=== PATIENT | female | born 1955 | race Caucasian/White ===

== ENCOUNTER → 2018-11-11 | Day surgery (SDC) | payer BC ==
[2018-11-05 11:01] LABS: BASOPHILS % 0.7 % (0.0-1.0); EOSINOPHILS # (AUTO) 0.3 (0.0-0.4); EOSINOPHILS % 4.3 % (0.0-6.0); HEMATOCRIT 39.2 % (34.2-44.1); HEMOGLOBIN 12.8 g/dL (12.0-16.0); LYMPHOCYTES # (AUTO) 1.5 (1.0-3.2); LYMPHOCYTES % 26.5 % (18.0-39.1); MEAN CORPUSCULAR HEMOGLOBIN 28.8 pg (28-32); MEAN CORPUSCULAR HGB CONC 32.7 g/dL (31-35); MEAN CORPUSCULAR VOLUME 88.3 fL (81-99); MONOCYTES # (AUTO) 0.5 (0.2-0.8); NEUTROPHILS # (AUTO) 3.5 (2.1-6.9); NEUTROPHILS % 60.3 % (38.7-80.0); PLATELET COUNT 226 x10e3/uL (140-360); RED BLOOD COUNT 4.44 x10e6/uL (3.6-5.1)
[2018-11-05 11:16] LABS: ANION GAP 10.8 mmol/L (8-16); BLOOD UREA NITROGEN 13 mg/dL (7-26); BUN/CREATININE RATIO 18 (6-25); CALCIUM 9.4 mg/dL (8.4-10.2); CARBON DIOXIDE 27 mmol/L (22-29); CHLORIDE 103 mmol/L (98-107); CREATININE, SERUM 0.73 mg/dL (0.57-1.11); EST GLOMERULAR FILTRATION RATE > 60 ML/MIN (60-); GLUCOSE 93 mg/dL (74-118); POTASSIUM 3.8 mmol/L (3.5-5.1); SODIUM 137 mmol/L (136-145)
--- NOTE | 2018-11-05 11:22 | Diagnostic Imaging Report ---
Chest, 2 views, 11/05/2018. History: Preop, foot surgery. Comparison: None available. Findings: The cardiomediastinal silhouette and pulmonary vasculature are within normal limits. The lungs are clear without evidence of consolidation or pleural effusion. Mild degenerative changes are present within the thoracic spine. There are no acute osseous or soft tissue abnormalities. Impression: No acute cardiopulmonary abnormality. Signed by: Willie Canela on 11/05/2018 11:18 AM
[~2018-11-11] MED LIST: ASPIRIN81 MG PO; ATORVASTATIN CA20 MG PO; BUPIVACAINE HCL 0.5% INJ 30 ML VIAL INJ ONE; CALCIUM 500+D1 EACH PO; CEFAZOLIN SOD 1 GM/NS 50ML 100 ML IV ONE; DEXAMETHASONE SOD PHOS INJ 4 MG/ML VIAL ONE; ENTRESTO PO; HYDROMORPHONE 2MG/ML 2 MG/ML ML ONE; LASIX20 MG PO; LIDOCAINE HCL 2% LOCAL INJ 5 ML SDV VIAL INJ ONE; METOPROLOL SUCC50 MG PO; MONTELUKAST SOD10 MG PO; NEOSTIGMINE 1 MG/ML 10ML VIAL ONE; ONDANSETRON HCL INJ 2MG/ML 2ML 2 MG/ML VIAL ONE; PREVACID15 M1 PO; PROPOFOL IV EMULSION 10 MG/ML 20 ML VIAL ONE; SEVOFLURANE INHAL SOLN 250 ML PEN BTL ONE; VALACYCLOVIR500 MG PO
--- OUTSIDE RECORDS SUMMARY | 2018-11-11 05:37 | XMS REPORT | Clinical Summary ---
Author Author [facility] Organization [facility] Address Unknown Phone Unavailable Care Team Providers Care Certified Family Mediator Name Role Phone Sid Winchester MD PCP Allergies Comments Active Allergy Reactions Severity Noted Date Iodine Itching 05/29/2016 Levofloxacin Itching 05/29/2016 Medications End Date Status Medication Sig Dispensed Refills Start Date Active LANSOPRAZOLE (PREVACID Take by 0 ORAL) mouth. OTC med Active ERGOCALCIFEROL, VITAMIN Take 2 0 D2, (VITAMIN D2 ORAL) tablets by mouth daily. Active CALCIUM CARBONATE/VITAMIN Take by 0 D3 (CALCIUM 500 + D ORAL) mouth. Active furosemide (LASIX) 20 mg Take 20 mg by 0 tablet mouth daily. Active spironolactone Take 25 mg by 0 (ALDACTONE) 25 MG tablet mouth 2 (two) times a day. Active sacubitril-valsartan Take 1 tablet 0 (ENTRESTO) 24-26 mg by mouth 2 tablet per tablet (two) times a day. Active potassium chloride Take 10 mEq 0 (KLOR-CON) 10 MEQ CR by mouth 2 tablet (two) times a day. Take with food Active aspirin (ECOTRIN) 81 MG Take 81 mg by 0 enteric coated tablet mouth daily. Active atorvastatin (LIPITOR) 40 Take 80 mg by 0 MG tablet mouth daily. Active metoprolol tartrate Take 50 mg by 0 (LOPRESSOR) 50 mg tablet mouth. Active multivitamins & Take 15 mL by 0 minerals-ferrous mouth daily. gluconate 9 mg iron/15 mL liquid Active ticagrelor (BRILINTA) 90 Take 90 mg by 0 mg tablet mouth. Active montelukast (SINGULAIR) Take 10 mg by 0 10 mg tablet mouth nightly. 06/05/2018 Discontinued (Therapy completed) triamcinolone (KENALOG) 0 0.1 % cream 7 06/05/2018 Discontinued (Therapy completed) losartan-hydrochlorothiaz Take 1 tablet 0 david (HYZAAR) 50-12.5 mg by mouth 2 per tablet (two) times a day. 06/05/2018 Discontinued (Therapy completed) LORATADINE (CLARITIN Take by 0 ORAL) mouth. OTC MED 06/05/2018 Discontinued (Therapy completed) ferrous sulfate 325 (65 Take 325 mg 0 FE) MG tablet by mouth daily with breakfast. 06/05/2018 Discontinued (Therapy completed) pantoprazole (PROTONIX) Take 20 mg by 0 20 MG EC tablet mouth daily. 06/05/2018 Discontinued (Therapy completed) ranolazine (RANEXA) 500 Take 500 mg 0 MG 12 hr ER tablet by mouth every 12 (twelve) hours. Active Problems Problem Noted Date First myocardial infarction Cardiomyopathy Encounters Care Team Description Date Type Specialty Concepcion Wayne MA 06/23/2018 Telephone Obstetrics and Gynecology Nicolasa Estrada MD Well woman exam (Primary Dx); Cervical cancer screening; Breast cancer screening 06/05/2018 Office Visit Obstetrics and Gynecology after 11/10/2017 Social History Date Tobacco Use Types Packs/Day Years Used Quit: 05/28/1992 Former Smoker Smokeless Tobacco: Never Used Drinks/Week oz/Week Comments Alcohol Use No Sex Assigned at Date Recorded Not on file Industry Job Start Date Occupation Not on file Not on file Not on file Travel End Travel History Travel Start No recent travel history available. Last Filed Vital Signs Reading Time Taken Comments Vital Sign 109/72 06/05/2018 11:46 AM CDT Blood Pressure 76 06/05/2018 11:46 AM CDT Pulse - - Temperature - - Respiratory Rate - - Oxygen Saturation - - Inhaled Oxygen Concentration 88.5 kg (195 lb) 06/05/2018 11:46 AM CDT Weight 166.4 cm (5' 5.5") 06/05/2018 11:46 AM CDT Height 31.96 06/05/2018 11:46 AM CDT Body Mass Index Plan of Treatment Health Maintenance Due Date Last Done Comments CERVICAL CANCER SCREENING 1977 COLONOSCOPY SCREENING 2006 SHINGLES VACCINES (#1) 2006 BREAST CANCER SCREENING 06/15/2018 06/15/2016 INFLUENZA VACCINE 10/16/2018 Procedures Comments Procedure Name Priority Date/Time Associated Diagnosis HPV MRNA E6/E7 REFLEX Routine 06/05/2018 HPV 16, 18/45 (REFLEX) 12:09 PM CDT THINPREP TIS PAP Routine 06/05/2018 12:09 PM CDT after 11/10/2017 Results * HPV mRNA E6/E7 REFLEX HPV 16, 18/45 (06/05/2018 12:09 PM CDT) HPV mRNA e6/e7 Not Detected Not Detected [facility] Comment: [facility] This test was performed using ING II the APTIMA HPV Assay ([employer] This assay detects E6/E7 viral messenger RNA (mRNA) from 14 high-risk HPV types (16,18,31,33,35,39,45,51,52,56 ,58,59,66,68). The analytical performance characteristics of this assay have been determined by [employer]. The modifications have not been cleared or approved by the FDA. This assay has been validated pursuant to the CLIA regulations and is used for clinical purposes. Specimen Resulting Agency Comment Performing Organization Information: Site ID: [id number] Name: [facility] Address: [address] [place] [phone] Director: Dr. Wei Myles Performing Organization Address City/State/Zipcode Phone Number JUDY [id number] [place] [address] II * THINPREP TIS PAP (06/05/2018 12:09 PM CDT) Clinical None given [facility] information [facility] ING II Date of last NONE GIVEN [facility] menstrual [facility] period ING II Prev. pap: NONE GIVEN [facility] ING II Prev. bx: NONE GIVEN [facility] ING II Source None given [facility] II Statement of Comment: [facility] adequacy Satisfactory for evaluation. [facility] Endocervical/transformation ING II zone component present. Interpretation/ Comment: Negative for [facility] result: intraepithelial lesion or [facility] malignancy. ING II Comment Comment: [facility] This Pap test has been [facility] evaluated with computer ING II assisted technology. [employer] Comment: [facility] t JESSICA, CT(ASCP) [facility] CT screening location: [facility] ING II Jean Paul [address], [place] [address] Comment Comment: [facility] EXPLANATORY NOTE: [facility] The Pap is a screening test ING II for cervical cancer. It is not a diagnostic test and is subject to false negative and false positive results. It is most reliable when a satisfactory sample, regularly obtained, is submitted with relevant clinical findings and history, and when the Pap result is evaluated along with historic and current clinical information. Specimen Resulting Agency Comment Performing Organization Information: Site ID: [id number] Name: [facility] Address: [address] [place] [phone] Director: Dr. Wei Myles Performing Organization Address City/State/Zipcode Phone Number JUDY [facility] PA[facility] [address] [facility] [place] [address] II after 11/10/2017 Insurance Type Payer Benefit Subscriber ID Effective Phone Address Plan / Dates Group PPO BCBS BCBS xxxxxxxxxxxx [id number] CHOICE resent PPO/CARLOS WAGNER PPO Advance Directives For more information, please contact: [phone] [employer] Membership Advisors Explanation Type Date Recorded Advance Directives, Living Will and Medical Power of Associate Engineer
--- OUTSIDE RECORDS SUMMARY | 2018-11-11 05:38 | XMS REPORT | Summary of Care ---
Author Author [facility] Outpatient Imaging [facility]patient [facility] Address Unknown Phone Unavailable Encounter HQ Encntr_alisoy(FIN) [id number] Date(s): 12/03/14 - 12/03/14 [facility] Outpatient Imaging [facility] [address] [facility], [address] [phone] Discharge Disposition: Home Attending Physician: Sid Winchester MD Vital Signs No data available for this section Problem List No data available for this section Allergies, Adverse Reactions, Alerts Substance Reaction Severity Status NKDA Active Medications No data available for this section Results No data available for this section Immunizations No data available for this section Procedures No data available for this section Social History No data available for this section Assessment and Plan No data available for this section
--- OUTSIDE RECORDS SUMMARY | 2018-11-11 05:38 | XMS REPORT | Summary of Care ---
Author Author [facility] [place] Organization [facility] [place] Address Unknown Phone Unavailable Encounter HQ Yasemin_juan f(FIN) [id number] Date(s): 06/13/17 - 06/13/17 [facility] [place] [address] [place] [address] [phone] Attending Physician: Sid Winchester MD Vital Signs No data available for this section Problem List Condition Effective Dates Status Health Status Informant Cataracts, Resolved bilateral(Confirmed) [facility]MC Resolved arthritis(Confirmed) Depression(Confirmed Resolved ) Neuropathy involving Resolved both lower extremities(Confirme d) Pain in the Resolved shoulder(Confirmed) Allergies, Adverse Reactions, Alerts Substance Reaction Severity Status Levaquin Active iodine Active Medications No data available for this section Results No data available for this section Immunizations No data available for this section Procedures Procedure Date Related Diagnosis Body Site Status Carpal tunnel release Completed Cataract surgery Completed section Completed Cholecystectomy Completed Gastric operation Completed Tonsillectomy Completed Social History Social History Type Response Smoking Status Former smoker; Exposure to Tobacco Smoke None; Cigarette Smoking Last 365 Days No; Reg Smoking Cessation Counseling No entered on: 11/22/16 Assessment and Plan No data available for this section
--- OUTSIDE RECORDS SUMMARY | 2018-11-11 05:38 | XMS REPORT | Summary of Care ---
Author Author [facility] Outpatient Imaging [facility] [place] Address Unknown Phone Unavailable Encounter ANGELO Easton(FIN) [id number] Date(s): 01/06/18 - 01/06/18 [facility] Outpatient Imaging [facility] [address] [facility], [address] [place] [phone] Encounter Diagnosis Gastro-esophageal reflux disease without esophagitis (Final) - 01/09/18 Constipation, unspecified (Final) - Nausea (Final) - Lower abdominal pain, unspecified (Final) - Cyst of kidney, acquired (Final) - Abdominal aortic aneurysm, without rupture (Final) - Intramural leiomyoma of uterus (Final) - Acquired absence of other specified parts of digestive tract (Final) - Discharge Disposition: Home or Self Care Attending Physician: Sid Winchester MD Referring Physician: Sid Winchester MD Vital Signs No [...]
--- OUTSIDE RECORDS SUMMARY | 2018-11-11 05:38 | XMS REPORT | CCD ---
Author Author [facility] Address Unknown Phone Unavailable Care Team Providers Care Recycling Attendant Name Role Phone Elvira Montgomery CP Allergies, Adverse Reactions, Alerts Substance Reaction Status NKDA Active Medications Medication Instructions Start Date End Date Status acetaminophen-hydroc 1 tab, Route: PO, kg, ONCE, STAT, 08/21/2012 08/21/2012 Completed odone 325 mg-7.5 mg Start date: 08/21/12 0:59:00, Stop oral tablet date: 08/21/12 0:59:00 clindamycin 600 mg, Route: IM, ONCE, kg, 08/21/2012 08/21/2012 Completed Priority: STAT, Start date: 08/21/12 0:59:00, Stop date: 08/21/12 0:59:00 promethazine 25 mg, Route: IM, ONCE, kg, 08/21/2012 08/21/2012 Completed Priority: STAT, Start date: 08/21/12 0:58:00, Stop date: 08/21/12 0:58:00 Zofran ODT 4 mg oral 4 mg, 1 tab, PO, Q8H, PRN, Dissolve 08/21/2012 08/24/2012 Ordered tablet, tab under tongue, 9 tab, as needed disintegrating for nausea/vomiting, Substitution Allowed Dissolve tab under tongue Heflin 7.5/325 oral 1 tab, PO, Q6H, PRN, 14 tab, for 08/21/2012 Ordered tablet pain, Substitution Allowed, Maintenance, TAB clindamycin 150 mg 300 mg, 2 cap, PO, Q6H, 80 cap, 08/21/2012 08/31/2012 Ordered oral capsule Substitution Allowed
--- OUTSIDE RECORDS SUMMARY | 2018-11-11 05:38 | XMS REPORT | Summary of Care ---
Author Author [facility] Organization [facility] Address Unknown Phone Unavailable Encounter HQ Rustam(FIN) [id number] Date(s): 06/03/17 - 06/03/17 [facility] [address] [place] [address]- [phone] Attending Physician: Monty Darling Referring Physician: Monty Darling Vital Signs No data available for this [...]
--- OUTSIDE RECORDS SUMMARY | 2018-11-11 05:38 | XMS REPORT | Summary of Care ---
Author Author [facility] Organization [facility] Address Unknown Phone Unavailable Encounter ANGELO Easton(KAM) [id number] Date(s): 12/18/17 - 01/16/18 [facility] [address] [place] [address]- [phone] Encounter Diagnosis Age-related osteoporosis without current pathological fracture (Final) - 01/22/18 Discharge Disposition: Home or Self Care Attending Physician: Ashley Willoughby Referring Physician: Ashley Willoughby Vital Signs Most recent to 1 oldest [Reference Range]: Height 167.64 cm (12/18/17 11:29 AM) Temperature Oral 98.3 DegF [96.4-99.1 DegF] (12/18/17 11:29 AM) Blood Pressure 96/64 mmHg [90-140/60-90 mmHg] (12/18/17 11:29 AM) Respiratory Rate 18 BRMIN [14-20 BRMIN] (12/18/17 11:29 AM) Peripheral Pulse 79 bpm Rate [60-100 bpm] (12/18/17 11:29 AM) Weight 86.08 kg (12/18/17 11:29 AM) Body Mass Index 30.63 m2 (12/18/17 11:29 AM) Problem List Condition Effective Dates Status Health Status Informant Cataracts, Resolved bilateral(Confirmed) CMC Resolved arthritis(Confirmed) Depression(Confirmed Resolved ) Neuropathy involving Resolved both lower extremities(Confirme d) Pain in the Resolved shoulder(Confirmed) Allergies, Adverse Reactions, Alerts Substance Reaction Severity Status Levaquin Active iodine Active Medications Reclast 5 mg, 100 mL, Route: IV, Drug form: SOLN, On Adm, Start date: 12/18/17 8:00:00 C DT, Duration: 1 doses or times, Stop date: 12/18/17 23:00:00 CDT Notes: (Same as: Reclast)Infuse not less then 15 minutes Start Date: 12/18/17 Stop Date: 12/18/17 Status: Completed Results Most recent to 1 oldest [Reference Range]: eGFR 65 mL/min/1.73m2 1 *NA* (12/18/17 11:15 AM) A/G Ratio [0.7-1.6] 1.1 (12/18/17 11:15 AM) Albumin Lvl [3.5-5.0 3.5 g/dL g/dL] (12/18/17 11:15 AM) Alk Phos [39-136 90 unit/L unit/L] (12/18/17 11:15 AM) ALT [0-65 unit/L] 21 unit/L (12/18/17 11:15 AM) AGAP [10.0-20.0 10.9 mEq/L mEq/L] (12/18/17 11:15 AM) AST [0-37 unit/L] 13 unit/L (12/18/17 11:15 AM) B/C Ratio [6-25] 20 (12/18/17 11:15 AM) BUN [7-22 mg/dL] 19 mg/dL (12/18/17 11:15 AM) Calcium Lvl 9.2 mg/dL [8.5-10.5 mg/dL] (12/18/17 11:15 AM) Chloride Lvl [95-109 102 mEq/L mEq/L] (12/18/17 11:15 AM) CO2 [24-32 mEq/L] 30 mEq/L (12/18/17 11:15 AM) Creatinine Lvl 0.95 mg/dL [0.50-1.40 mg/dL] (12/18/17 11:15 AM) Globulin [2.7-4.2 3.2 g/dL g/dL] (12/18/17 11:15 AM) Glucose Lvl [70-99 100 mg/dL mg/dL] *HI* (12/18/17 11:15 AM) Potassium Lvl 3.9 mEq/L [3.5-5.1 mEq/L] (12/18/17 11:15 AM) Sodium Lvl [135-145 139 mEq/L mEq/L] (12/18/17 11:15 AM) Total Protein 6.7 g/dL [6.4-8.4 g/dL] (12/18/17 11:15 AM) Bili Total [0.2-1.3 0.6 mg/dL mg/dL] (12/18/17 11:15 AM) 1Result Comment: The eGFR is calculated using the CKD-EPI formula. In most young, healthy individuals the eGFR will be >90 mL/min/1.73m2. The eGFR declines with age. An eGFR of 60-89 may be normal in some populations, particularly the elderly, for whom the CKD-EPI formula has not been extensively validated. Use of the eGFR is not recommended in the following populations: Individuals with unstable creatinine concentrations, including patients and those with serious co-morbid conditions. Patients with extremes in muscle mass or diet. The data above are obtained from the National Kidney Disease Education Program ( NKDEP) which additionally recommends that when the eGFR is used in patients with extremes of body mass index for purposes of drug dosing, the eGFR should be mul tiplied by the estimated BMI. Immunizations No data available for this section [...]
--- OUTSIDE RECORDS SUMMARY | 2018-11-11 05:38 | XMS REPORT | Summary of Care ---
Author Author [facility] [place] Organization [facility] [place] Address Unknown Phone Unavailable Encounter ANGELO Easton(FIN) [id number] Date(s): 06/17/18 - 06/17/18 [facility] [place] [address] [place] [phone] Discharge Disposition: Home or Self Care Attending Physician: Nicolasa Estrada MD Referring Physician: Nicolasa Etsrada MD Vital Signs No data available for [...]
--- OUTSIDE RECORDS SUMMARY | 2018-11-11 05:38 | XMS REPORT | Summary of Care ---
Author Author [facility] [place] Organization [facility] [place] Address Unknown Phone Unavailable Encounter HQ Rustam(FIN) [id number] Date(s): 04/26/17 - 04/26/17 [facility] [place] [address] [place] [address] [phone] Encounter Diagnosis Complete rotator cuff tear or rupture of left shoulder, not specified as traumat ic (Final) - 04/30/17 Primary osteoarthritis, left shoulder (Final) - Effusion, left shoulder (Final) - Discharge Disposition: Home or Self Care Attending Physician: Sid Winchester MD Vital Signs [...]
--- OUTSIDE RECORDS SUMMARY | 2018-11-11 05:38 | XMS REPORT | CCD ---
Author Author Auto Generated Organization [facility] Address Unknown Phone Unavailable Care Team Providers Care Attendant Honor Bar Name Role Phone Karen Perales CP Allergies, Adverse Reactions, Alerts Substance Reaction Status NKDA Active Medications Medication Instructions Start Date End Date Status predniSONE 20 mg 20 mg, 1 tab, PO, Daily, 3 tab, 12/05/2012 12/08/2012 Ordered oral tablet Substitution Allowed albuterol 90 mcg/inh 1 puff, INHALATION, QID, PRN, 1 ea, 12/05/2012 Ordered inhalation aerosol wheezing, Substitution Allowed, Maintenance Levaquin 750 mg oral 750 mg, 1 tab, PO, Q24H, 7 tab, 12/05/2012 12/06/2012 Deleted tablet Substitution Allowed, TAB aspirin 325 mg, 1 tab, Route: PO, Drug 12/05/2012 12/05/2012 Completed form: TAB, ONCE, Dosing Weight 86.364, kg, Priority: STAT, Start date: 12/05/12 21:21:00, Stop date: 12/05/12 21:21:00 DuoNeb inhalation 3 mL, Route: INHALATION, Drug Form: 12/05/2012 12/05/2012 Completed solution SOLN, Dosing Weight 86.364, kg, ONCE, Start date: 12/05/12 21:20:00, Stop date: 12/05/12 21:20:00 Azithromycin 5 Day 250 mg, PO, Daily, Take 2 tablets 12/06/2012 12/11/2012 Ordered Dose Pack 250 mg by mouth the first day then 1 oral tablet tablet by mouth days 2-5, 6 tab, Substitution Allowed Take 2 tablets by mouth the first day then 1 tablet by mouth days 2-5 potassium chloride 20 mEq, Route: PO, Drug form: 12/05/2012 12/06/2012 Completed ERTAB, ONCE, Dosing Weight 86.364, kg, Priority: Routine, Start date: 12/05/12 23:18:00, Stop date: 12/05/12 23:18:00 Levaquin 750 mg, Route: IV, ONCE, Dosing 12/05/2012 12/06/2012 Completed Weight 86.364, kg, Start date: 12/05/12 23:17:00, Stop date: 12/05/12 23:17:00 Benadryl 50 mg, Route: PO, Drug form: CAP, 12/06/2012 12/06/2012 Completed ONCE, Dosing Weight 86.364, kg, Priority: STAT, Start date: 12/06/12 1:29:00, Stop date: 12/06/12 1:29:00 Saline Flush 0.9% 5 mL, Route: IVP, Drug Form: INJ, 12/05/2012 12/06/2012 Discontinued Dosing Weight 86.364, kg, Q8H, PRN Line Flush, Start date: 12/05/12 21:02:00, Duration: 30 day, Stop date: 01/04/13 21:01:00, Administer at least once every 8 hours Administer at least once every 8 hours ketorolac 30 mg, 1 mL, Route: IVP, Drug form: 12/05/2012 12/05/2012 Completed INJ, ONCE, Dosing Weight 86.364, kg, Priority: STAT, Start date: 12/05/12 21:52:00, Stop date: 12/05/12 21:52:00 dexamethasone 10 mg, 2.5 mL, Route: IVP, Drug 12/05/2012 12/05/2012 Completed form: INJ, ONCE, Dosing Weight 86.364, kg, Priority: STAT, Start date: 12/05/12 21:52:00, Stop date: 12/05/12 21:52:00 Reglan 10 mg, 2 mL, Route: IVP, Drug form: 12/05/2012 12/05/2012 Completed INJ, ONCE, Dosing Weight 86.364, kg, Priority: STAT, Start date: 12/05/12 21:52:00, Stop date: 12/05/12 21:52:00 Sodium Chloride 0.9% 1,000 mL, Rate: 1,000 ml/hr, Infuse 12/05/2012 12/05/2012 Completed (Bolus) IV 1,000 mL over: 1 hr, Route: IV, Dosing Weight 86.364 kg, Total Volume: 1,000, Priority: STAT, Start date: 12/05/12 21:52:00, Duration: 1 doses or times, Stop date: 12/05/12 22:51:00, Bolus Dose Bolus Dose Vital Signs Most recent to oldest [Reference Range]: 1 2 3 Height 170.18 cm (12/05/2012 20:14:00) Temperature Oral [96.4-99.1 DegF] 97.8 DegF (12/06/2012 01:35:00) 98.1 DegF (12/05/2012 23:16:00) 99.1 DegF (12/05/2012 20:14:00) Systolic Blood Pressure [90-140 mmHg] 123 mmHg (12/06/2012 01:35:00) 134 mmHg (12/06/2012 00:30:00) 131 mmHg (12/05/2012 23:16:00) Diastolic Blood Pressure [60-90 mmHg] 69 mmHg (12/06/2012 01:35:00) 69 mmHg (12/06/2012 00:30:00) 64 mmHg (12/05/2012 23:16:00) Respiratory Rate [14-20 BRMIN] 19 BRMIN (12/06/2012 01:35:00) 21 BRMIN *HI* (12/06/2012 00:30:00) 22 BRMIN *HI* (12/05/2012 23:16:00) Peripheral Pulse Rate [60-100 bpm] 80 bpm (12/06/2012 01:35:00) 76 bpm (12/06/2012 00:30:00) 85 bpm (12/05/2012 23:16:00) Weight 86.364 kg (12/05/2012 20:14:00) Results URINALYSIS Most recent to oldest [Reference Range]: 1 UA Turbidity [Clear] Marked *ABN* (12/05/2012 21:30:00) UA Color Jessica *NA* (12/05/2012:30:00) UA pH [5.0-8.0] 6.0 (12/05/2012 21:30:00) UA Spec Grav [<=1.030] 1.014 (12/05/2012 21:30:00) UA Glucose [Negative mg/dL] Negative mg/dL *NA* (12/05/2012:30:00) UA Blood [Negative] Small *ABN* (12/05/2012:30:00) UA Ketones [Negative mg/dL] Negative mg/dL *NA* (12/05/2012:30:00) UA Protein [Negative mg/dL] Negative mg/dL (12/05/2012:30:00) UA Urobilinogen [0.1-1.0 mg/dL] <=1.0 mg/dL *NA* (12/05/2012:30:00) UA Bili [Negative] Negative *NA* (12/05/2012:30:00) UA Leuk Est [Negative] Small *ABN* (12/05/2012:30:00) UA Nitrite [Negative] Positive *ABN* (12/05/2012:30:00) UA WBC [0-5 /HPF] 11 /HPF *HI* (12/05/2012:30:00) UA RBC [0-2 /HPF] 4 /HPF *HI* (12/05/2012:30:00) UA Bacteria [None Seen /HPF] Occasional /HPF *NA* (12/05/2012:30:00) UA Sq Epi [Few /LPF] Few /LPF *NA* (12/05/2012:30:00) UA Mucus [None Seen /LPF] Few /LPF *NA* (12/05/2012:30:00) CHEMISTRY Most recent to oldest [Reference Range]: 1 Sodium Lvl [135-145 mEq/L] 142 mEq/L (12/05/2012:30:00) Potassium Lvl [3.5-5.1 mEq/L] 3.3 mEq/L *LOW* (12/05/2012:30:00) Chloride Lvl [95-109 mEq/L] 105 mEq/L (12/05/2012:30:00) CO2 [24-32 mEq/L] 27 mEq/L (12/05/2012:30:00) AGAP [10.0-20.0 mEq/L] 13.3 mEq/L (12/05/201230:00) Creatinine Lvl [0.5-1.4 mg/dL] 0.8 mg/dL (12/05/2012:00) eGFR 83 mL/min/1.73m2 1 *NA* (12/05/201200) BUN [7-22 mg/dL] 11 mg/dL (12/05/2012:00) B/C Ratio [6-25] 14 (12/05/2012::00) Glucose Lvl [70-99 mg/dL] 123 mg/dL 2 *HI* (12/05/2012) Total Protein [6.4-8.4 g/dL] 7.5 g/dL (12/05/2012:00) Albumin Lvl [3.5-5.0 g/dL] 3.9 g/dL (12/05/2012) Globulin [2.0-4.0 g/dL] 3.6 g/dL (12/05/2012) A/G Ratio [0.7-1.6] 1.1 (12/05/2012) Calcium Lvl [8.5-10.5 mg/dL] 9.2 mg/dL (12/05/2012:00) ALT [0-65 unit/L] 22 unit/L (12/05/201200) AST [0-37 unit/L] 18 unit/L (12/05/2012:00) Alk Phos [39-136 unit/L] 128 unit/L (12/05/201200) Bili Total [0.2-1.3 mg/dL] 1.0 mg/dL (12/05/2012:00) Total CK [12-191 unit/L] 120 unit/L (12/05/201200) CK MB [0.5-3.6 ng/mL] <0.5 ng/mL (12/05/201200) CK MB Index [0.0-2.5] <0.4 (12/05/2012:00) Troponin-I [0.00-0.40 ng/mL] <0.02 ng/mL (12/05/2012:30:00) BNP [<=100 pg/mL] 14 pg/mL 3 (12/05/2012:30:00) 1Result Comment: The eGFR is calculated using [...] be mul tiplied by the estimated BMI. 2Interpretive Data: Adult reference range values reflect the clinical guidelines of the [place] [employer]. 3Interpretive Data: Elevated results are in line with increasing severity of congestive heart failure. Minor elevations between 100 and 300 may be seen with Myocardial Ischemia, Sodium retaining drugs, and compensated/treated heart failure. HEMATOLOGY Most recent to oldest [Reference Range]: 1 WBC [3.7-10.4 K/CMM] 10.2 K/CMM (12/05/2012:00) RBC [4.20-5.40 M/CMM] 4.51 M/CMM (12/05/2012::00) Hgb [12.0-16.0 g/dL] 11.7 g/dL *LOW* (12/05/2012:00) Hct [36.0-48.0 %] 36.3 % (12/05/2012::00) MCV [81.0-99.0 fL] 80.6 fL *LOW* (12/05/201230:00) MCH [27.0-31.0 pg] 26.0 pg *LOW* (12/05/2012::00) MCHC [32.0-36.0 g/dL] 32.2 g/dL (12/05/2012:30:00) RDW [11.5-14.5 %] 13.9 % (12/05/2012 21:30:00) Platelet [133-450 K/CMM] 235 K/CMM (12/05/2012:30:00) MPV [7.4-10.4 fL] 8.8 fL (12/05/2012:30:00) Segs [45.0-75.0 %] 76.9 % *HI* (12/05/2012:30:00) Lymphocytes [20.0-40.0 %] 12.6 % *LOW* (12/05/2012:30:00) Monocytes [2.0-12.0 %] 9.7 % (12/05/2012:30:00) Eosinophils [0.0-4.0 %] 0.5 % (12/05/2012:30:00) Basophils [0.0-1.0 %] 0.3 % (12/05/2012:30:00) Segs-Bands # [1.5-8.1 K/CMM] 7.9 K/CMM (12/05/2012:30:00) Lymphocytes # [1.0-5.5 K/CMM] 1.3 K/CMM (12/05/2012:30:00) Monocytes # [0.0-0.8 K/CMM] 1.0 K/CMM *HI* (12/05/2012:30:00) Eosinophils # [0.0-0.5 K/CMM] 0.1 K/CMM (12/05/2012:30:00) Basophils # [0.0-0.2 K/CMM] 0.0 K/CMM (12/05/2012:30:00) PT [12.0-14.7 seconds] 14.8 seconds *HI* (12/05/2012:30:00) INR [0.85-1.17] 1.17 4 (12/05/2012:30:00) PTT [22.9-35.8 seconds] 26.6 seconds 5 (12/05/2012:30:00) 4Interpretive Data: RECOMMENDED RANGES FOR PROTIME INR: 2.0-3.0 for most medical and surgical thromboembolic states. 2.5-3.5 for artificial heart valves and recurrent embolism. INR SHOULD BE USED ONLY FOR PATIENTS ON STABLE ANTICOAGULANT THERAPY. 5Interpretive Data: Heparin Therapeutic Range: 57 - 92 Seconds Microbiology Reports PROCEDURE:Culture: Urine STATUS: Auth (Verified) BODY SITE: COLLECTED DATE/TIME: 12/05/2012 21:30:00 SOURCE: Urine, Clean Catch FREE TEXT SOURCE: FINAL REPORTS Final Report >10,000 CFU/mL Klebsiella pneumoniae ssp pneumoniae PRELIMINARY REPORTS Preliminary Report >10,000 CFU/mL Gram Negative Rods, Lactose Fermenters Identification And Sensitivity Pending Preliminary Report Culture In Progress SUSCEPTIBILITY REPORT KLEPNE Antibiotic INTERP. VDIL Amikacin S Ampicillin R Ampicillin/Sulbactam S Cefazolin S Cefepime S Ceftriaxone S ESBL Confirmation - Gentamicin S Levofloxacin S Meropenem S Nitrofurantoin R Piperacillin/Tazobactam S Tetracycline S Tobramycin S Trimethoprim/Sulfamethoxazole S
--- OUTSIDE RECORDS SUMMARY | 2018-11-11 05:38 | XMS REPORT | CCD ---
Author Author Auto Generated Organization [facility] Outpatient [facility] Address Unknown Phone Unavailable Care Team Providers Care Cylinder Head Assembler Name Role Phone GENNA LAMAR CP Unavailable Allergies, Adverse Reactions, Alerts Substance Reaction Status NKDA Active
--- OUTSIDE RECORDS SUMMARY | 2018-11-11 05:38 | XMS REPORT | Summary of Care ---
Author Organization Unknown Address Unknown Phone Unavailable Encounter Dates Location Diagnoses Discharge Providers Disposition 05/14/2013 [facility] Outpatient Imaging - Home Dick Tatum 05/14/[address] Reason for Visit V76.12 - SCREEN MAMMOGRA Problem List No data available for this section Allergies, Adverse Reactions, Alerts Status Substance Reaction Severity Active NKDA Medications No data available for this section Medications Administered During Your Visit No data available for this section Immunizations No data available for this section
--- OUTSIDE RECORDS SUMMARY | 2018-11-11 05:38 | XMS REPORT | Summary of Care ---
Author Organization Unknown Address Unknown Phone Unavailable Encounter HQ Marianr_juan f([facility]) [id number] Date(s): 11/02/13 - 11/02/13 [facility] Outpatient Imaging - [address] [address] [place] Discharge Disposition: Home Physician Attending: Sid Winchester MD Reason for Visit 845.00 - SPRAIN OF [place]KLE Problem List No data available for this section Allergies, Adverse Reactions, Alerts Substance Reaction Severity Status NKDA Active Medications No data available for this section Medications Administered During Your Visit No data available for this section Immunizations No data available for this section
--- OUTSIDE RECORDS SUMMARY | 2018-11-11 05:38 | XMS REPORT | Summary of Care ---
Author Author [facility] [place] Organization [facility] [place] Address Unknown Phone Unavailable Encounter HQ Encntr_alias([facility]) [id number] Date(s): 06/12/16 - 06/12/16 [facility] [place] [address] [place] [phone] Discharge Disposition: Home or Self Care Attending Physician: Cherise Goode MD Vital Signs No data available for [...]
--- OUTSIDE RECORDS SUMMARY | 2018-11-11 05:38 | XMS REPORT | Summary of Care ---
Author Organization Unknown Address Unknown Phone Unavailable Encounter HQ Encntr_alias([facility]) [id number] Date(s): 07/13/14 - 07/13/14 [facility] Outpatient Imaging - [id number] [place] [address] [phone] Discharge Disposition: Home Physician Attending: Sid Winchester MD Vital Signs No data [...]
--- OUTSIDE RECORDS SUMMARY | 2018-11-11 05:38 | XMS REPORT | Summary of Care ---
Author Organization Unknown Address Unknown Phone Unavailable Encounter HQ Encntr_alisoy([facility]) [id number] Date(s): 05/18/14 - 05/18/14 [facility] Outpatient Imaging - [id number] [place] [address] [phone] Discharge Disposition: Home Physician Attending: Beto Lopez MD Vital Signs No data available for [...]
--- OUTSIDE RECORDS SUMMARY | 2018-11-11 05:38 | XMS REPORT | Continuity of Care Document ---
Author Author [employer] Organization [employer] Address Unknown Phone Unavailable Care Team Providers Care Mortgage Collector Name Role Phone [employer] Unavailable Unavailable Problems Problem Status Onset Date Classification Date Reported Comments Source Age-related osteoporosis without current pathological fracture 01/23/2018 08/05/2018 [facility] Gastro-esophageal reflux disease without esophagitis 01/10/2018 07/26/2018 [facility] [place] RECLAST Active 12/03/2017 [facility] Encounter for screening mammogram for malignant neoplasm of breast 06/21/2017 09/20/[address] [facility] Alex Esteban's Z12.31 - ENCNTR SCREEN MAMMOGRAM FOR MA Active 05/08/2017 [facility] [place] UNK Active 05/02/2017 [facility] Complete rotator cuff tear or rupture of left shoulder, not specified as traumatic 05/01/2017 08/02/2017 [facility] [place] 719.46 - JOINT PAIN-L/LE Active 12/03/2014 [facility] SOB Active 12/05/2012 [facility] DENTAL PAIN Active 08/20/2012 [facility] Primary osteoarthritis, left shoulder 08/02/2017 [facility] [place] Effusion, left shoulder 08/02/2017 [facility] [place] Constipation, unspecified 07/26/2018 [facility] [place] Nausea 07/26/2018 [facility] [place] Lower abdominal pain, unspecified 07/26/2018 [facility] [place] Cyst of kidney, acquired 07/26/2018 [facility] [place] Abdominal aortic aneurysm, without rupture 07/26/2018 [facility] [place] Intramural leiomyoma of uterus 07/26/2018 [facility] [place] Acquired absence of other specified parts of digestive tract 07/26/2018 [facility] [place] Bilateral cataracts (disorder) Resolved Problem 08/05/2018 [facility] Alex Esteban's, [facility] [place], [facility], [facility] [place] Arthropathy of joint of hand (disorder) Resolved Problem 08/05/2018 [facility], [facility] [place],[facility] Depressive disorder (disorder) Resolved Problem 08/05/2018 [facility], [facility] [place],[facility], [facility] [place] Neuropathy of lower limb (disorder) Resolved Problem 08/05/2018 [facility], [facility] [place],[facility], [facility] [place] Shoulder pain (finding) Resolved Problem 08/05/2018 [facility], [facility] [place],[facility] [place] Medications Medication Details Route Status Patient Instructions Ordering Provider Order Date Source Reclast 5 mg, 100 mL, Route: IV, Drug form: SOLN, On Adm, Start date: 12/18/17 8:00:00 CDT, Duration: 1 doses or times, Stop date: 12/18/17 23:00:00 CDTNotes: (Same as: Reclast) Infuse not less then 15 minutes Inactive 12/18/2017 [facility] Albuterol 0.833 MG/ML / Ipratropium [place] 0.167 MG/ML Inhalant Solution 3 mL, Route: NEB, Dosing Weight 89.602, kg, ONCE, STAT, Start date: 11/23/16 10:49:00 CDT, Stop date: 11/23/16 10:49:00 CDT Inactive 11/23/2016 [facility] Sodium Chloride 0.9% IV 500 mL 500 mL, Rate: 25 ml/hr, Infuse over: 20 hr, Route: IV, Dosing Weight 89.602 kg, Total Volume: 500, Start date: 11/23/16 10:49:00 CDT, Duration: 30 day, Stop date: 12/23/16 10:48:00 CDT Inactive 11/23/2016 [facility] Diclofenac Sodium 10 MG/ML Topical Cream TOP, QID, 0 Refill(s) Inactive 11/22/2016 [facility] ProAir HFA 1 - 2 puffs, PO, Q4H, PRN Wheezing / cough / shortness of breath, # 1 ea, 0 Refill(s) Active 11/22/2016 [facility] Vitamin D3 2000 intl units oral tablet 2,000 IntlUnit=1 tab, PO, Daily, 0 Refill(s) Active 11/22/2016 [facility] lansoprazole 30 MG Enteric Coated Capsule [Prevacid] 30 mg=1 cap, PO, Daily, # 30 cap, 0 Refill(s) Active 11/22/2016 [facility] Procycle Multi Vitamin with Minerals oral tablet 1 tab, PO, Daily, 0 Refill(s) Active 11/22/2016 [facility] Loratadine 10 MG Oral Tablet [Claritin] 10 mg=1 tab, PO, Daily, # 7 tab, 0 Refill(s) Active 11/22/2016 [facility] Calcium Carbonate 1250 MG Oral Tablet 1,250 mg=1 tab, PO, Daily, 0 Refill(s) Active 11/22/2016 [facility] Benadryl 50 mg, Route: PO, Drug form: CAP, ONCE, Dosing Weight 86.364, kg, Priority: STAT, Start date: 12/06/12 1:29:00, Stop date: 12/06/12 1:29:00 PO No Longer Active [place] 12/06/2012 [facility] Azithromycin 5 Day Dose Pack 250 mg oral tablet 250 mg, PO, Daily, Take 2 tablets by mouth the first day then 1 tablet by mouth days 2- 5, 6 tab, Substitution AllowedTake 2 tablets by mouth the first day then 1 tablet by mouth days 2-5 PO Active [place] 12/06/2012 [facility] predniSONE 20 mg oral tablet 20 mg, 1 tab, PO, Daily, 3 tab, Substitution Allowed PO Active [place] 12/06/2012 [facility] albuterol 90 mcg/inh inhalation aerosol 1 puff, INHALATION, QID, PRN, 1 ea, wheezing, Substitution Allowed, Maintenance INHALATION Active [place] 12/06/2012 [facility] Levaquin 750 mg oral tablet 750 mg, 1 tab, PO, Q24H, 7 tab, Substitution Allowed, TAB PO No Longer Active [place] 12/06/2012 [facility] potassium chloride 20 mEq, Route: PO, Drug form: ERTAB, ONCE, Dosing Weight 86.364, kg, Priority: Routine, Start date: 12/05/12 23:18:00, Stop date: 12/05/12 23:18:00 PO No Longer Active [place] 12/06/2012 [facility] Levaquin 750 mg, Route: IV, ONCE, Dosing Weight 86.364, kg, Start date: 12/05/12 23:17:00, Stop date: 12/05/12 23:17:00 IV No Longer Active [place] 12/06/2012 [facility] ketorolac 30 mg, 1 mL, Route: IVP, Drug form: INJ, ONCE, Dosing Weight 86.364, kg, Priority: STAT, Start date: 12/05/12 21:52:00, Stop date: 12/05/12 21:52:00 IVP No Longer Active [place] 12/06/2012 [facility] dexamethasone 10 mg, 2.5 mL, Route: IVP, Drug form: INJ, ONCE, Dosing Weight 86.364, kg, Priority: STAT, Start date: 12/05/12 21:52:00, Stop date: 12/05/12 21:52:00 IVP No Longer Active [place] 12/06/2012 [facility] Reglan 10 mg, 2 mL, Route: IVP, Drug form: INJ, ONCE, Dosing Weight 86.364, kg, Priority: STAT, Start date: 12/05/12 21:52:00, Stop date: 12/05/12 21:52:00 IVP No Longer Active [place] 12/06/2012 [facility] Sodium Chloride 0.9% (Bolus) IV 1,000 mL 1,000 mL, Rate: 1,000 ml/hr, Infuse over: 1 hr, Route: IV, Dosing Weight 86.364 kg, Total Volume: 1,000, Priority: STAT, Start date: 12/05/12 21:52:00, Duration: 1 doses or times, Stop date: 12/05/12 22:51:00, Bolus DoseBolus Dose IV No Longer Active [place] 12/06/2012 [facility] aspirin 325 mg, 1 tab, Route: PO, Drug form: TAB, ONCE, Dosing Weight 86.364, kg, Priority: STAT, Start date: 12/05/12 21:21:00, Stop date: 12/05/12 21:21:00 PO No Longer Active [place] 12/06/2012 [facility] DuoNeb inhalation solution 3 mL, Route: INHALATION, Drug Form: SOLN, Dosing Weight 86.364, kg, ONCE, Start date: 12/05/12 21:20:00, Stop date: 12/05/12 21:20:00 INHALATION No Longer Active [place] 12/06/2012 [facility] Saline Flush 0.9% 5 mL, Route: IVP, Drug Form: INJ, Dosing Weight 86.364, kg, Q8H, PRN Line Flush, Start date: 12/05/12 21:02:00, Duration: 30 day, Stop date: 01/04/13 21:01:00, Administer at least once every 8 hoursAdminister at least once every 8 hours IVP No Longer Active [place] 12/06/2012 [facility] Zofran ODT 4 mg oral tablet, disintegrating 4 mg, 1 tab, PO, Q8H, PRN, Dissolve tab under tongue, 9 tab, as needed for nausea/vomiting, Substitution AllowedDissolve tab under tongue PO Active [place] 08/21/2012 [facility] [place] 7.5/325 oral tablet 1 tab, PO, Q6H, PRN, 14 tab, for pain, Substitution Allowed, Maintenance, TAB PO Active [place] 08/21/2012 [facility] clindamycin 150 mg oral capsule 300 mg, 2 cap, PO, Q6H, 80 cap, Substitution Allowed PO Active [place] 08/21/2012 [facility] acetaminophen-hydrocodone 325 mg-7.5 mg oral tablet 1 tab, Route: PO, kg, ONCE, STAT, Start date: 08/21/12 0:59:00, Stop date: 08/21/12 0:59:00 PO No Longer Active [place] 08/21/2012 [facility] clindamycin 600 mg, Route: IM, ONCE, kg, Priority: STAT, Start date: 08/21/12 0:59:00, Stop date: 08/21/12 0:59:00 IM No Longer Active [place] 08/21/2012 [facility] promethazine 25 mg, Route: IM, ONCE, kg, Priority: STAT, Start date: 08/21/12 0:58:00, Stop date: 08/21/12 0:58:00 IM No Longer Active [place] 08/21/2012 [facility] Allergies, Adverse Reactions, Alerts Substance Category Reaction Severity Reaction type Status Date Reported Comments Source Levaquin Assertion Drug allergy Active [facility] iodine Assertion Drug allergy Active [facility] Immunizations No Data Provided for This Section Results Order Name Results Value Reference Range Date Interpretation Comments Source CHEM PANEL eGFR 65 12/18/2017 Result Comment: The eGFR is calculated using the [...] from the National Kidney Disease Education Program (NKDEP) which additionally recommends that when the eGFR is used in patients with extremes of body mass index for purposes of drug dosing, the eGFR should be multiplied by the estimated BMI. [facility] CHEM PANEL BUN 19 7 - 22 12/18/2017 [facility] CHEM PANEL Creatinine Lvl 0.95 0.50 - 1.40 12/18/2017 [facility] CHEM PANEL Sodium Lvl 139 135 - 145 12/18/2017 [facility] CHEM PANEL Potassium Lvl 3.9 3.5 - 5.1 12/18/2017 [facility] CHEM PANEL Chloride Lvl 102 95 - 109 12/18/2017 [facility] CHEM PANEL CO2 30 24 - 32 12/18/2017 [facility] CHEM PANEL Glucose Lvl 100 70 - 99 12/18/2017 [facility] CHEM PANEL AGAP 10.9 10.0 - 20.0 12/18/2017 [facility] CHEM PANEL Calcium Lvl 9.2 8.5 - 10.5 12/18/2017 [facility] CHEM PANEL B/C Ratio 20 6 - 25 12/18/2017 [facility] CHEM PANEL A/G Ratio 1.1 0.7 - 1.6 12/18/2017 [facility] CHEM PANEL Globulin 3.2 2.7 - 4.2 12/18/2017 [facility] CHEM PANEL Bili Total 0.6 0.2 - 1.3 12/18/2017 [facility] CHEM PANEL Albumin Lvl 3.5 3.5 - 5.0 12/18/2017 [facility] CHEM PANEL Total Protein 6.7 6.4 - 8.4 12/18/2017 [facility] CHEM PANEL Alk Phos 90 39 - 136 12/18/2017 [facility] CHEM PANEL ALT 21 0 - 65 12/18/2017 [facility] CHEM PANEL AST 13 0 - 37 12/18/2017 [facility] CHEMISTRY CK MB Index <0.4 0.0 - 2.5 12/06/2012 Normal [facility] CHEMISTRY BNP 14 <=100 12/06/2012 Normal <sup>3</sup>Interpretive Data: Elevated results are in line with increasing severity of
congestive heart failure. Minor elevations between 100 and 300
may be seen with Myocardial Ischemia, Sodium retaining drugs,
and compensated/treated heart failure. [facility] CHEMISTRY Total CK 120 12 - 191 12/06/2012 Normal [facility] CHEMISTRY Troponin-I <0.02 0.00 - 0.40 12/06/2012 Normal [facility] CHEMISTRY CK MB <0.5 0.5 - 3.6 12/06/2012 Normal [facility] CHEMISTRY eGFR 83 12/06/2012 NA <sup>1</sup>Result Comment: The eGFR is calculated using the CKD-EPI formula. In most young, healthy individuals the eGFR will be >90 mL/min/1.73m2. The eGFR declines with age. An eGFR of 60-89 may be normal in some populations, particularly the elderly, for whom the CKD-EPI formula has not been extensively validated. Use of the eGFR is not recommended in the following populations:& lt;br/>
Individuals with unstable creatinine concentrations, including patients and those with serious co-morbid conditions.

Patients with extremes in muscle mass or diet.

The data above are obtained from the National Kidney Disease Education Program (NKDEP) which additionally recommends that when the eGFR is used in patients with extremes of body mass index for purposes of drug dosing, the eGFR should be multiplied by the estimated BMI. [facility] CHEMISTRY CO2 27 24 - 32 12/06/2012 Normal [facility] CHEMISTRY Glucose Lvl 123 70 - 99 12/06/2012 [place] <sup>2</sup>Interpretive Data: Adult reference range values reflect the clinical guidelines
of the [place] [employer]. [facility] CHEMISTRY Creatinine Lvl 0.8 0.5 - 1.4 12/06/2012 Normal [facility] CHEMISTRY BUN 11 7 - 22 12/06/2012 Normal [facility] CHEMISTRY B/C Ratio 14 6 - 25 12/06/2012 Normal [facility] CHEMISTRY Globulin 3.6 2.0 - 4.0 12/06/2012 Normal [facility] CHEMISTRY Total Protein 7.5 6.4 - 8.4 12/06/2012 Normal [facility] CHEMISTRY Calcium Lvl 9.2 8.5 - 10.5 12/06/2012 Normal [facility] CHEMISTRY Albumin Lvl 3.9 3.5 - 5.0 12/06/2012 Normal [facility] CHEMISTRY A/G Ratio 1.1 0.7 - 1.6 12/06/2012 Normal [facility] CHEMISTRY AGAP 13.3 10.0 - 20.0 12/06/2012 Normal [facility] CHEMISTRY Bili Total 1.0 0.2 - 1.3 12/06/2012 Normal [facility] CHEMISTRY AST 18 0 - 37 12/06/2012 Normal [facility] CHEMISTRY Alk Phos 128 39 - 136 12/06/2012 Normal [facility] CHEMISTRY ALT 22 0 - 65 12/06/2012 Normal [facility] CHEMISTRY Potassium Lvl 3.3 3.5 - 5.1 12/06/2012 LOW [facility] CHEMISTRY Chloride Lvl 105 95 - 109 12/06/2012 Normal [facility] CHEMISTRY Sodium Lvl 142 135 - 145 12/06/2012 Normal [facility] HEMATOLOGY Eosinophils # 0.1 0.0 - 0.5 12/06/2012 Normal [facility] HEMATOLOGY Basophils # 0.0 0.0 - 0.2 12/06/2012 Normal [facility] HEMATOLOGY Monocytes 9.7 2.0 - 12.0 12/06/2012 Normal [facility] HEMATOLOGY Lymphocytes 12.6 20.0 - 40.0 12/06/2012 LOW [facility] HEMATOLOGY Segs 76.9 45.0 - 75.0 12/06/2012 [facility] HEMATOLOGY Monocytes # 1.0 0.0 - 0.8 12/06/2012 [facility] HEMATOLOGY Lymphocytes # 1.3 1.0 - 5.5 12/06/2012 Normal [facility] HEMATOLOGY Segs-Bands # 7.9 1.5 - 8.1 12/06/2012 Normal [facility] HEMATOLOGY Basophils 0.3 0.0 - 1.0 12/06/2012 Normal [facility] HEMATOLOGY Eosinophils 0.5 0.0 - 4.0 12/06/2012 Normal [facility] HEMATOLOGY PTT 26.6 22.9 - 35.8 12/06/2012 Normal <sup>5</sup>Interpretive Data: Heparin Therapeutic Range: 57 - 92 Seconds [facility] HEMATOLOGY PT 14.8 12.0 - 14.7 12/06/2012 [place] [facility] HEMATOLOGY INR 1.17 0.85 - 1.17 12/06/2012 Normal <sup>4</sup>Interpretive Data: RECOMMENDED RANGES FOR PROTIME INR:
2.0-3.0 for most medical and surgical thromboembolic states.
2.5-3.5 for artificial heart valves and recurrent embolism.

INR SHOULD BE USED ONLY FOR PATIENTS ON STABLE ANTICOAGULANT THERAPY. [facility] HEMATOLOGY MPV 8.8 7.4 - 10.4 12/06/2012 Normal [facility] MCHC 32.2 32.0 - 36.0 12/06/2012 Normal [facility] MCH 26.0 27.0 - 31.0 12/06/2012 LOW [facility] MCV 80.6 81.0 - 99.0 12/06/2012 LOW [facility] Hct 36.3 36.0 - 48.0 12/06/2012 Normal [facility] Hgb 11.7 12.0 - 16.0 12/06/2012 LOW [facility] HEMATOLOGY RDW 13.9 11.5 - 14.5 12/06/2012 Normal [facility] Platelet 235 133 - 450 12/06/2012 Normal [facility] RBC 4.51 4.20 - 5.40 12/06/2012 Normal [facility] WBC 10.2 3.7 - 10.4 12/06/2012 Normal [facility] URINALYSIS UA Protein Negative mg/dL (12/05/2012 21:30:00) Negative 12/06/2012 Normal [facility] URINALYSIS UA Turbidity Marked *ABN* (12/05/2012 21:30:00) Clear 12/06/2012 ABN [facility] URINALYSIS UA pH 6.0 5.0 - 8.0 12/06/2012 Normal [facility] URINALYSIS UA Blood Small *ABN* (12/05/2012 21:30:00) Negative 12/06/2012 ABN [facility] URINALYSIS UA Spec Grav 1.014 <=1.030 12/06/2012 Normal [facility] URINALYSIS UA Ketones Negative mg/dL *NA* (12/05/2012 21:30:00) Negative 12/06/2012 [facility] URINALYSIS UA Glucose Negative mg/dL *NA* (12/05/2012 21:30:00) Negative 12/06/2012 [facility] URINALYSIS UA Sq Epi Few /LPF *NA* (12/05/2012 21:30:00) Few 12/06/2012 [facility] URINALYSIS UA WBC 11 0 - 5 12/06/2012 [facility] URINALYSIS UA RBC 4 0 - 2 12/06/2012 [facility] URINALYSIS UA Bacteria Occasional /HPF *NA* (12/05/2012 21:30:00) None Seen 12/06/2012 [facility] URINALYSIS UA Mucus Few /LPF *NA* (12/05/2012 21:30:00) None Seen 12/06/2012 [facility] URINALYSIS UA Nitrite Positive *ABN* (12/05/2012 21:30:00) Negative 12/06/2012 ABN [facility] URINALYSIS UA Bili Negative *NA* (12/05/2012 21:30:00) Negative 12/06/2012 [facility] URINALYSIS UA Leuk Est Small *ABN* (12/05/2012 21:30:00) Negative 12/06/2012 ABN [facility] URINALYSIS UA Urobilinogen 0.1 - 1.0 12/06/2012 [facility] URINALYSIS UA Color Jessica 12/06/2012 [facility] Microbiology Culture: Urine 12/06/2012 [facility] Pathology Reports No Data Provided for This Section Diagnostic Reports Report Value Date Source Breast Mammo Scrn RYAN incl CAD MA BILATERAL DIGITAL SCREENING MAMMOGRAM WITH CAD: 06/17/2018 CLINICAL: Encounter For Screening Mammogram For Malignant Neoplasm Of Breast/Z12.31. Current study was evaluated with a Computer Aided Detection (CAD) system. COMPARISON:Comparison is made to exams dated: 06/14/2017 mammogram - [facility], 06/12/2016 mammogram, 06/10/2015 mammogram, 05/18/2014 mammogram, and 05/14/2013 mammogram - [facility]. TECHNIQUE: Mammographic views were obtained using digital acquisition. Current study was also evaluated with a Computer Aided Detection (CAD) system. FINDINGS: The tissue of both breasts is almost entirely fat. No significant masses, calcifications, or other findings are seen in either breast. There has been no significant interval change. IMPRESSION: NEGATIVE RECOMMENDATION:There is no mammographic evidence of malignancy. A 1 year screening mammogram is recommended.(06/18/2019) This exam was interpreted at [id number] for [facility]. Professional services are provided by the [facility]. Lori Rae M.D. ks/penrad:06/17/2018 13:11:54 [employer](s): Clair Rudd, RT(R)(M), [facility] letter sent: BI-RADS 1/2 Mammogram BI-RADS: 1 Negative 06/17/2018 [facility] Pelvis w Pelvis Transvaginal US EXAM: US ABDOMEN COMPLETE EXAM: US PELVIS TRANSABDOMINAL EXAM: US PELVIS TRANSVAGINAL DATE: 01/06/2018 7:54 AM CDT INDICATION: - K21.9 Gastro-esophageal reflux disease without esophagitis, K59.00 Constipation, unspecified, R11.0 Nausea for the past 2 weeks,R10.30 Lower abdominal pain, unspecified ADDITIONAL INFORMATION: Patient's last menstrual period was 7 years ago.. COMPARISON: 02/26/2017. TECHNIQUE: Multiplanar grayscale and color Doppler ultrasound images of the abdomen. Multiplanar grayscale and color Doppler ultrasound images of the pelvis were obtained transabdominally through a distended urinary bladder followed by transvaginal examination postvoid. FINDINGS: Liver: Craniocaudal length: 14.3 cm. Normal. Echogenicity: Normal. Surface nodularity: None Mass (size and location): None. Portal vein: 12 mm with hepatopetal flow. Bile ducts: Common bile duct diameter: 6 mm. Normal. Intrahepatic ducts: Normal. Gallbladder: Status post cholecystectomy Pancreas: No abnormalities of the visualized portions of the pancreas are demonstrated. Portions of the pancreas are obscured by overlying bowel gas. Spleen: Craniocaudal length: 10.2 cm. Normal. Mass or focal lesion (size and location): None. Right kidney: Size: 11.4 x 5.1 x 6.3 cm. Normal. Hydronephrosis: None. Echogenicity: Normal. Mass/Stone/Cyst (size and location): None. Left kidney: Size: 11.0 x 5.2 x 5.1 cm. Normal. Hydronephrosis: None. Echogenicity: Normal. Mass/Stone/Cyst (size and location): Within the inferior pole the left kidney, there is an anechoic avascular thin-walled simple cyst measuring 0.7 x 0.5 x 0.7 cm. Bosniak 2 cyst seen in the inferior pole the left kidney on the prior exam is no longer visualized.. Abdominal aorta and IVC: The distal abdominal aorta remains ectatic/mildly aneurysmally dilated now measuring 2.5 x 2.5 Siemens maximal diameter of (2.3 cm in maximal and the prior exam). Atherosclerotic plaque is again seen in the abdominal aorta. No abnormalities of the visualized portions of the inferior vena cava are seen. Ascites: None Pleural Effusions: None Uterus: Orientation: Anteverted Size: 7.2 x 3.7 x 4.9 cm Masses: Within the posterior uterine fundus, there is a heterogeneously hypoechoic intramural mass measuring 2.0 x 1.7 x 2.1 cm compatible with a leiomyoma, stable from the prior exam. A second hypoechoic and anechoic intramural mass is seen in the mid right uterine body on the right measuring 0.5 x 0.5 x 0.5 cm and stable from the prior exam, likely a leiomyoma as well.. Cervix: Simple nabothian cysts. Endometrium: 2.9 mm. No focal abnormalities or abnormal endometrial vascularity are seen. Right ovary: Size: 2.0 x 1.1 x 1.5 cm Cysts: None. Masses: None. Vascularity: Normal. Left ovary: Size: 1.8 x 1.4 x 1.8 cm Cysts: None. Masses: None. Vascularity: Normal. Adnexa: No adnexal masses or fluid collections are seen. Free fluid: None. Other findings: None. IMPRESSION: 1. Simple cyst in the inferior pole the left kidney. A second Bosniak 2 cyst seen in the left kidney on the prior exam has resolved. 2. Status post cholecystectomy. 3. 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 Atherosclerotic vascular disease of the abdominal aorta is stable. 4. Stable intramural leiomyoma of the uterus. A second lesion likely represents either a stable degenerated leiomyoma which is partially cystic versus a focal adenomyoma versus a benign myometrial cyst. 01/06/2018 [facility] Abdomen complete US EXAM: US ABDOMEN COMPLETE EXAM: US PELVIS TRANSABDOMINAL EXAM: US PELVIS TRANSVAGINAL DATE: 01/06/2018 7:54 AM CDT INDICATION: - K21.9 Gastro-esophageal reflux disease without esophagitis, K59.00 Constipation, unspecified, R11.0 Nausea for the past 2 weeks,R10.30 Lower abdominal pain, unspecified ADDITIONAL INFORMATION: Patient's last menstrual period was 7 years ago.. COMPARISON: 02/26/2017. TECHNIQUE: Multiplanar grayscale and color Doppler ultrasound images of the abdomen. Multiplanar grayscale and color Doppler ultrasound images of the pelvis were obtained transabdominally through a distended urinary bladder followed by transvaginal examination postvoid. FINDINGS: Liver: Craniocaudal length: 14.3 cm. Normal. Echogenicity: Normal. Surface nodularity: None Mass (size and location): None. Portal vein: 12 mm with hepatopetal flow. Bile ducts: Common bile duct diameter: 6 mm. Normal. Intrahepatic ducts: Normal. Gallbladder: Status post cholecystectomy Pancreas: No abnormalities of the visualized portions of the pancreas are demonstrated. Portions of the pancreas are obscured by overlying bowel gas. Spleen: Craniocaudal length: 10.2 cm. Normal. Mass or focal lesion (size and location): None. Right kidney: Size: 11.4 x 5.1 x 6.3 cm. Normal. Hydronephrosis: None. Echogenicity: Normal. Mass/Stone/Cyst (size and location): None. Left kidney: Size: 11.0 x 5.2 x 5.1 cm. Normal. Hydronephrosis: None. Echogenicity: Normal. Mass/Stone/Cyst (size and location): Within the inferior pole the left kidney, there is an anechoic avascular thin-walled simple cyst measuring 0.7 x 0.5 x 0.7 cm. Bosniak 2 cyst seen in the inferior pole the left kidney on the prior exam is no longer visualized.. Abdominal aorta and IVC: The distal abdominal aorta remains ectatic/mildly aneurysmally dilated now measuring 2.5 x 2.5 Siemens maximal diameter of (2.3 cm in maximal and the prior exam). Atherosclerotic plaque is again seen in the abdominal aorta. No abnormalities of the visualized portions of the inferior vena cava are seen. Ascites: None Pleural Effusions: None Uterus: Orientation: Anteverted Size: 7.2 x 3.7 x 4.9 cm Masses: Within the posterior uterine fundus, there is a heterogeneously hypoechoic intramural mass measuring 2.0 x 1.7 x 2.1 cm compatible with a leiomyoma, stable from the prior exam. A second hypoechoic and anechoic intramural mass is seen in the mid right uterine body on the right measuring 0.5 x 0.5 x 0.5 cm and stable from the prior exam, likely a leiomyoma as well.. Cervix: Simple nabothian cysts. Endometrium: 2.9 mm. No focal abnormalities or abnormal endometrial vascularity are seen. Right ovary: Size: 2.0 x 1.1 x 1.5 cm Cysts: None. Masses: None. Vascularity: Normal. Left ovary: Size: 1.8 x 1.4 x 1.8 cm Cysts: None. Masses: None. Vascularity: Normal. Adnexa: No adnexal masses or fluid collections are seen. Free fluid: None. Other findings: None. IMPRESSION: 1. Simple cyst in the inferior pole the left kidney. A second Bosniak 2 cyst seen in the left kidney on the prior exam has resolved. 2. Status post cholecystectomy. 3. 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 Atherosclerotic vascular disease of the abdominal aorta is stable. 4. Stable intramural leiomyoma of the uterus. A second lesion likely represents either a stable degenerated leiomyoma which is partially cystic versus a focal adenomyoma versus a benign myometrial cyst. 01/06/2018 [facility] Bone Density DXA [employer] MA BONE DENSITY ASSESSMENT: 09/24/2017 CLINICAL DATA: Post menopausal. M81.0 Age related osteoporosis. M81.0 Age- Related Osteoporosis Without Current Pathological Fracture/M81.0 Age-Related Osteoporosis Without Current Pathological Fracture RISK FACTORS: race. COMPARISON: 06/10/2015 Left hip using a Hologic unit from [facility] with reported medium fracture risk, BMD of 0.766g/cm2, T-score of -1.40, and Z-score of - 0.60. 06/10/2015 Right hip using a Hologic unit from [facility] with reported medium fracture risk, BMD of 0.799g/cm2, T-score of -1.20, and Z-score of - 0.30. 06/10/2015 AP L1-L4 region of spine using a Hologic unit from [facility] with reported medium fracture risk, BMD of 0.912g/cm2, T-score of - 1.20, and Z-score of 0.10. FINDINGS: Bone density evaluation was performed 09/24/2017 on the right femur neck using a Hologic unit. The BMD average for the exam is 0.729 g/cm2. The T-score is - 1.10 and the Z-score is 0.20. This matches the World Health Organization's criteria for osteopenia and places the patient at a medium risk for fracture. An additional bone density evaluation was performed 09/24/2017 on the left femur neck using a Hologic unit. The BMD average for the exam is 0.721 g/cm2. The T- score is -1.20 and the Z-score is 0.20. This matches the World Health Organization's criteria for osteopenia and places the patient at a medium risk for fracture. An additional bone density evaluation was performed 09/24/2017 on the right hip using a Hologic unit. The BMD average for the exam is 0.778 g/cm2. The T-score is -1.30 and the Z-score is -0.40. Since the previous similar exam of 06/10/2015, there has been a -0.021 or -2.6% change in the BMD value which represents no significant interval change in bone density. This matches the World Health Organization's criteria for osteopenia and places the patient at a medium risk for fracture. An additional bone density evaluation was performed 09/24/2017 on the left hip using a Hologic unit. The BMD average for the exam is 0.766 g/cm2. The T-score is -1.40 and the Z-score is -0.40. Since the previous similar exam of 06/10/2015, there has been no change in bone density. This matches the World Health Organization's criteria for osteopenia and places the patient at a medium risk for fracture. An additional bone density evaluation was performed 09/24/2017 on the AP L3-L4 region of spine using a Hologic unit. The BMD average for the exam is 0.966 g/cm2. The T-score is -1.20 and the Z-score is 0.30. This matches the World Health Organization's criteria for osteopenia and places the patient at a medium risk for fracture. FRAX 10 year probability of major osteoporotic fracture is 7.1% and hip fracture is 0.4%. IMPRESSION: OSTEOPENIA Patient is at medium risk for fracture. This exam was interpreted at [id number] at [facility]. Alexis Carmona M.D., jp/yves:09/24/2017 10:30:30 Electronic Equipment Repairmen(s): Debbie Reyes RT(R)(M), [facility] 09/24/2017 [facility] Breast Mammo Scrn RYAN incl CAD MA BILATERAL DIGITAL SCREENING MAMMOGRAM WITH CAD: 06/14/2017 CLINICAL: /Z12.31 Encounter For Screening Mammogram For Malignant Neoplasm Of Breast. Current study was evaluated with a Computer Aided Detection (CAD) system. COMPARISON:Comparison is made to exams dated: 06/12/2016 mammogram, 06/10/2015 mammogram, 05/18/2014 mammogram, 05/14/2013 mammogram, 05/14/2012 mammogram, and 05/09/2011 mammogram - [facility]. TECHNIQUE: Mammographic views were obtained using digital acquisition. Current study was also evaluated with a Computer Aided Detection (CAD) system. FINDINGS: There are scattered fibroglandular densities in both breasts. There are benign scattered densities and calcifications in both breasts. There is a benign intramammary node in the left breast. There also are benign oil cysts in the right breast. No significant masses, calcifications, or other findings are seen in either breast. There has been no significant interval change. IMPRESSION: BENIGN RECOMMENDATION:There is no mammographic evidence of malignancy. A 1 year screening mammogram is recommended.(06/15/2018) This exam was interpreted at [id number] for [facility]. Beto Guthrie M.D. mt/:06/18/2017 16:02:32 Electronic Equipment Repairmen(s): Esperanza Skinner, [facility] letter sent: BI-RADS 1/2 Mammogram BI-RADS: 2 Benign 06/14/2017 [facility] Shoulder wo contrast MRI EXAMINATION: MR left shoulder without contrast HISTORY: M75.100 Unspecified rotator cuff tear or rupture of unspecified shoulder, not specified as traumatic; left shoulder pain and limited range of motion; history of fall on 03/15/2017; left rotator cuff tear; left subacromial spur COMPARISON: There are no radiographs available for review. TECHNIQUE: Multiplanar, multisequence magnetic resonance imaging of the left shoulder is performed with a local coil. Transverse, oblique coronal, and oblique sagittal images are obtained. FINDINGS: Biceps: There is mild intra-articular biceps tendinosis with increased intratendinous signal. The long head of the biceps tendon remains attached at the superior bicipital labral complex without dislocation or subluxation. Labrum: The glenoid labrum is intact on this non-arthrographic examination. Rotator cuff tendons: There is a full-thickness tear involving the vast majority of the supraspinatus tendon measuring 2.1 cm in anteroposterior dimension with medial retraction of the torn distal tendon fibers by 1.5 cm and retraction of the supraspinatus myotendinous junction to the level of the glenohumeral joint. There is also low-grade, partial-thickness, interstitial tearing involving the infraspinatus tendon including small delaminating components. There is underlying severe supraspinatus and moderate infraspinatus tendinosis, but no full-thickness tear of the infraspinatus tendon. The teres minor and subscapularis tendons are intact. Muscles: There is normal signal intensity and muscle bulk of the rotator cuff musculature. Acromio-osseous outlet: There is a type I acromion with a large subacromial keel spur. There is no os acromiale. The coracoacromial and coracoclavicular ligaments are intact. There is minimal degenerative arthrosis of the acromioclavicular joint. Bone: There are no acute fractures. There are no suspicious bone marrow replacing lesions. Cartilage: Again, there is minimal degenerative arthrosis of the acromioclavicular joint with associated chondrosis. There is no focal glenohumeral chondral defect. Soft tissue: There is a small glenohumeral joint effusion which communicates with a moderate amount of fluid within the subacromial subdeltoid bursa through the full-thickness rotator cuff defect. There are multiple osteocartilaginous loose bodies along the anterior and lateral aspect of the proximal humerus within the fluid of the subacromial subdeltoid bursa. The inferior glenohumeral capsular ligaments are intact. IMPRESSION: 1. Full-thickness tear involving the vast majority of the left supraspinatus tendon with medial retraction and measurements as above. There is also low-grade, partial-thickness, interstitial tearing involving the left infraspinatus tendon including small delaminating components. There is underlying severe left supraspinatus and moderate left infraspinatus tendinosis, but no left rotator cuff muscular fatty atrophy. 2. Mild left intra-articular biceps tendinosis with increased intratendinous signal, but no proximal biceps tendon tear. 3. Small left glenohumeral joint effusion which communicates with a moderate amount of fluid within the left subacromial subdeltoid bursa through the full- thickness rotator cuff defect. There is likely a component of left subacromial subdeltoid bursitis with no made of multiple osteocartilaginous loose bodies along the anterior and lateral aspect of the proximal humerus within the fluid of the subacromial subdeltoid bursa. 4. Large left subacromial keel spur contributing to narrowing of the shoulder outlet and predisposing to subacromial impingement and rotator cuff pathology. 5. Minimal left acromioclavicular degenerative arthrosis. 6. Intact left glenoid labrum without focal glenohumeral chondral defect. 04/26/2017 [facility] Abdomen complete US EXAM: US ABDOMEN COMPLETE DATE: 02/26/2017 7:54 AM ASSEMBLER GOLD FRAME INDICATION: Cyst of kidney, acquired. COMPARISON: Retroperitoneal ultrasound, 07/13/2014. TECHNIQUE: Multiplanar grayscale and color Doppler ultrasound of the abdomen. FINDINGS: Liver: Craniocaudal length: 12.6 cm. Echogenicity: Normal. Surface nodularity: Normal. Mass (size and location): None. Portal vein: Normal hepatopetal flow. Diameter 1.2 cm. Bile ducts: Common bile duct diameter: 6 mm. Intrahepatic ducts: Normal. Gallbladder: Status post cholecystectomy. Pancreas: Visualized portions of the pancreatic body, head, and uncinate process are normal. Remainder of pancreas obscured by bowel gas. Spleen: Craniocaudal length: 10.7 cm. Mass or focal lesion (size and location): None. Right kidney: Hydronephrosis: None. Size: 11.2 cm. Echogenicity: Normal. Mass/Stone/Cyst (size and location): None. Left kidney: Hydronephrosis: None. Size: 10.6 cm. Echogenicity: Normal. Mass/Stone/Cyst (size and location): 2 small simple appearing left renal cyst at the mid and inferior poles, measuring 1 cm and 9 mm. Tiny hyperechoic focus at the margin of the larger cyst. Abdominal aorta and IVC: Mildly ectatic abdominal aorta measuring 2.4 cm proximally, 2.3 cm in the mid segment, and 2.3 cm distally. Atheromatous plaque along its length. (Previous measurements were 2.0 cm, 2.1 cm, and 1.7 cm proximal, mid, and distal respectively.) Ascites: None. IMPRESSION: 1. 2 small left renal cysts, one minimally complex (Bosniak 2) and the other simple; no follow up required. 2. Mildly ectatic abdominal aorta with moderate atheromatous plaque. Measurements of caliber of abdominal aorta have increased a few millimeters from comparison examination. 3. Status post cholecystectomy 02/26/2017 [facility] w Pelvis Transvaginal US EXAM: US PELVIS TRANSABDOMINAL EXAM: US PELVIS TRANSVAGINAL DATE: 02/26/2017 7:55 AM ASSEMBLER GOLD FRAME INDICATION: Pelvic and perineal pain. Dysuria. Additional information: LMP 4 years ago. . Patient reports frequent urination and recurrent urinary tract infection for a few months. Painful urination. COMPARISON: None. TECHNIQUE: Multiplanar grayscale and color Doppler ultrasound of the pelvis were obtained: Transabdominally through urinary bladder, but bladder only partially distended Transvaginally postvoid. FINDINGS: Uterus/Myometrium: Size: 7.4 cm x 4.0 cm x 5.3 cm Orientation: Anteverted. Echogenicity: Heterogeneous. It is unclear if this is technical or due to finding. Masses: Ovoid 2.3 cm mass at the posterior fundus consistent with a fibroid. Small 5 mm hypoechoic lesion in the right superior uterine body is nonspecific and may represent an additional fibroid or myometrial cyst. Cervix: Normal. Endometrium: Thickness: 3 mm Cysts/Masses: None. Right ovary: Size: 2.2 cm x 1.1 cm x 1.8 cm Cysts/Masses: None. Left ovary: Size: 2.4 cm x 2.0 cm x 2.0 cm Cysts/Masses: None. Adnexa: Normal. Other: None. IMPRESSION: 1. Posterior fundal uterine fibroid, 2.3 cm. 2. Additional small subcentimeter hypoechoic uterine lesion. Considerations include either an additional fibroid or small myometrial cyst, as may be seen with adenomyosis. 02/26/2017 [facility] Chest 2 views DX EXAM: XR CHEST 2 VIEWS DATE: 07/18/2016 1:11 PM CDT INDICATION: J20.9 Acute bronchitis, unspecified COMPARISON: 04/23/2013 TECHNIQUE: PA and lateral chest radiographs FINDINGS: No lung parenchymal or pleural abnormalities are seen. Neha and pulmonary vasculature are normal. Cardiac silhouette is normal in size. There is mild tortuosity of the descending thoracic aorta. No acute bony abnormality is identified. IMPRESSION: No acute cardiopulmonary abnormality. No significant change when compared with 04/23/2013. 07/18/2016 [facility] Breast Mammo Scrn RYAN incl CAD MA - BREAST MAMMO SCRN RYAN INCL CAD MA BILATERAL DIGITAL SCREENING MAMMOGRAM WITH CAD: 06/12/2016 CLINICAL: Z12.31 Encounter For Screening Mammogram For Malignant Neoplasm Of Breast. Current study was evaluated with a Computer Aided Detection (CAD) system. Comparison is made to exams dated: 06/10/2015 mammogram, 05/18/2014 mammogram, 05/14/2013 mammogram, 05/14/2012 mammogram, 05/09/2011 mammogram and 05/08/2010 mammogram - [facility]. The tissue of both breasts is almost entirely fat. There are benign calcifications in both breasts. There also is a benign intramammary node in the left breast. No significant masses, calcifications, or other findings are seen in either breast. There has been no significant interval change. IMPRESSION: BENIGN There is no mammographic evidence of malignancy. A 1 year screening mammogram is recommended. Professional services are provided by the [facility]. Lalito Albert M.D., cm/penrad:06/13/2016 08:55:11 Electronic Equipment Repairmen: Clair Rudd RT(R)(M), [facility] This exam was dictated and interpreted by [id number] for Tadeo. letter sent: Normal exam Mammogram BI-RADS: 2 Benign 06/12/2016 [facility] Digital Mammo Screening Ryan MA - DIGITAL MAMMO SCREENING RYAN MA BILATERAL DIGITAL SCREENING MAMMOGRAM WITH CAD: 06/10/2015 CLINICAL: Routine. Current study was evaluated with a Computer Aided Detection (CAD) system. Comparison is made to exams dated: 05/18/2014 mammogram, 05/14/2013 mammogram, 05/14/2012 mammogram, 05/09/2011 mammogram, 05/08/2010 mammogram and 04/21/2009 mammogram - [facility]. There are scattered fibroglandular densities in both breasts. No significant masses, calcifications, or other findings are seen in either breast. There has been no significant interval change. IMPRESSION: NEGATIVE There is no mammographic evidence of malignancy. A 1 year screening mammogram is recommended. Lori Rae M.D. ks/penrad:06/10/2015 14:51:27 Electronic Equipment Repairmen: Debbie Reyes RT(R)(M), [facility] This exam was dictated and interpreted by [id number] for THA Chapin. letter sent: Normal exam Mammogram BI-RADS: 1 Negative 06/10/2015 [facility] Bone Density DXA [employer] MA - Bone Density DXA [employer] MA BONE DENSITY EVALUATION: 06/10/2015 CLINICAL DATA: Post menopausal and clinical risk for osteoporosis. RISK FACTORS: race. FINDINGS: Bone density evaluation was performed 06/10/2015 on the AP L1-L4 region of spine using a Hologic unit. The BMD average for the exam is 0.912 g/cm2. The T-score is -1.20 and the Z-score is 0.10. This matches the World Health Organization's criteria for osteopenia and places the patient at a medium risk for fracture. An additional bone density evaluation was performed 06/10/2015 on the right femur neck using a Hologic unit. The BMD average for the exam is 0.701 g/cm2. The T-score is -1.30 and the Z-score is -0.10. This matches the World Health Organization's criteria for osteopenia and places the patient at a medium risk for fracture. An additional bone density evaluation was performed 06/10/2015 on the right hip using a Hologic unit. The BMD average for the exam is 0.799 g/cm2. The T-score is -1.20 and the Z-score is -0.30. This matches the World Health Organization's criteria for osteopenia and places the patient at a medium risk for fracture. An additional bone density evaluation was performed 06/10/2015 on the left femur neck using a Hologic unit. The BMD average for the exam is 0.727 g/cm2. The T- score is -1.10 and the Z-score is 0.10. This matches the World Health Organization's criteria for osteopenia and places the patient at a medium risk for fracture. An additional bone density evaluation was performed 06/10/2015 on the left hip using a Hologic unit. The BMD average for the exam is 0.766 g/cm2. The T-score is -1.40 and the Z-score is -0.60. This matches the World Health Organization's criteria for osteopenia and places the patient at a medium risk for fracture. IMPRESSION: OSTEOPENIA Patient is at medium risk for fracture. This exam was dictated and interpreted by [id number] for [facility]. Zina Stafford M.D. ms/penrad:06/13/2015 09:36:23 Electronic Equipment Repairmen: Clair DOTSON(R)(M), [facility] 06/10/2015 [facility] Knee 4+ views unilateral DX EXAM: X-RAY LEFT KNEE 4 VIEWS DATE: 12/16/2014 COMPARISON EXAMS: None. CLINICAL INDICATION: Left knee pain DATA: None TECHNIQUE: Left knee standing AP, lateral, patellar sunrise, and Da Silva views DISCUSSION: No fractures, osseous malalignment, or osseous destructive lesions are seen. There is moderate narrowing of the medial joint compartment of the left knee. Tricompartmental marginal osteophyte formation is present. There is a trace degree of static lateral patellar subluxation present. No knee joint effusion or soft tissue abnormalities are noted. IMPRESSION: Tricompartmental osteoarthritis of the right knee, most pronounced in the medial joint compartment with associated joint space narrowing. 12/16/2014 [facility] Knee 3 views DX EXAM: X-RAY LEFT KNEE 3 VIEWS DATE: 12/03/2014 COMPARISON EXAMS: Left knee arthrogram was 08/19/2009 and left knee MRI 08/19/2009 CLINICAL INDICATION: Left knee pain DATA: None TECHNIQUE: AP, lateral, and patellar sunrise views DISCUSSION: Tricompartmental osteoarthritic changes are again demonstrated. There is moderate medial and mild patellofemoral joint compartment joint space narrowing with tricompartmental osteophyte formation present. No fractures or osseous destructive lesions are seen. No joint effusion is seen. Minimal atherosclerotic calcifications are seen in the distal left thigh. IMPRESSION: Tricompartmental osteoarthritis of the left knee. 12/03/2014 [facility] Retroperitoneal Complete US Exam: Bilateral renal ultrasound. Reason for Exam: Cystic kidney disease Comparison Exam: A report from outside MRI of the lumbar spine performed 06/29/2014 Discussion: Multiple sagittal and axial images were obtained of the kidneys. The right kidney measures 10.9 x 5.8 x 5.6 cm. It is of unremarkable echogenicity without evidence for hydronephrosis. There is no cystic appearing mass seen within the right kidney to correlate with recent MRI exam. If further characterization is warranted, consider dedicated MRI of the abdomen with renal mass protocol. Two hyperechoic foci seen within the right kidney, suggestive of calcified stones. The larger measures up to 7 mm. The cortical thickness measures 1.9 cm. The left kidney measures 11.5 x 6.1 x 5.4 cm. It is of unremarkable echogenicity without evidence for hydronephrosis. 8 mm cyst seen within the left kidney. 3 mm hyperechoic focus seen within the left kidney, suggestive of a calcified stone. The cortical thickness measures 1.5 cm. Visualized portions of the bladder are unremarkable. Moderate amount of scattered plaque seen within the abdominal aorta. Visualized portions of the IVC are unremarkable. The common iliac arteries are not adequately seen. Impression: 1. No distinct cystic mass seen within the right kidney to correspond with recent MRI exam. If further characterization is wanted, consider dedicated MRI of the abdomen with renal mass protocol. 07/13/2014 [facility] [place] Digital Mammo Screening Ryan MA - DIGITAL MAMMO SCREENING RYAN MA BILATERAL DIGITAL SCREENING MAMMOGRAM WITH CAD: 05/18/2014 CLINICAL: Routine. Current study was evaluated with a Computer Aided Detection (CAD) system. Comparison is made to exams dated: 05/09/2011 mammogram, 05/14/2012 mammogram and 05/14/2013 mammogram - [facility]. There are scattered fibroglandular densities in both breasts. There are benign calcifications in the right breast. There also are benign densities in the right breast. No significant masses, calcifications, or other findings are seen in either breast. There has been no significant interval change. IMPRESSION: BENIGN There is no mammographic evidence of malignancy. A 1 year screening mammogram is recommended. Jovany Carmona M.D. [facility]/penrad:05/18/2014 09:34:12 Electronic Equipment Repairmen: Chandni CHIN)(Ingris), [facility] This exam was dictated and interpreted by [id number] for THA Chapin. letter sent: Normal exam Mammogram BI-RADS: 2 Benign 05/18/2014 [facility] Foot AP lateral HISTORY: Sprain TECHNIQUE: Two views of the left foot COMPARISON: None FINDINGS: No acute fracture or dislocation. No suspicious osseous lesion. Joint spaces are well maintained. Small plantar calcaneal enthesophyte is seen. Overlying soft tissues are within normal limits. IMPRESSION: No acute osseous abnormality. 11/02/2013 [facility] Digital Mammo Screening Ryan MA - DIGITAL MAMMO SCREENING RYAN MA BILATERAL DIGITAL SCREENING MAMMOGRAM WITH CAD: 05/14/2013 CLINICAL: Routine. Current study was evaluated with a Computer Aided Detection (CAD) system. Comparison is made to exams dated: 06/09/2007 mammogram, 05/12/2008 mammogram, 04/21/2009 mammogram and 05/08/2010 mammogram - [facility]. There are scattered fibroglandular densities in both breasts. No significant masses, calcifications, or other findings are seen in either breast. There has been no significant interval change. IMPRESSION: NEGATIVE There is no mammographic evidence of malignancy. A screening mammogram in one year is recommended. Dr. Sadie pereyra/penrad:05/14/2013 09:58:42 Electronic Equipment Repairmen: Chandni CHIN)(M), [facility] This exam was dictated and interpreted by [id number] for THA [place]. letter sent: Normal exam Mammogram BI-RADS: 1 Negative 05/14/2013 THA [place] Chest 2 views CHEST RADIOGRAPHY CLINICAL HISTORY: Back pain COMPARISON IMAGIN12/05/2012 FINDINGS: Two views of the chest were acquired and submitted for evaluation. No pleural fluid is identified. The contour of the cardiac silhouette is within normal limits. There is no significant pulmonary consolidation or nodularity. Bones are unremarkable. IMPRESSION: No significant abnormality. 04/23/2013 EDGAR [place] Chest 1view HISTORY: Headache chest tightness. Portable chest 1 view. Subtle interstitial infiltrate is suggested in the right lower lobe. Correlate clinically for pneumonia. There is no pleural effusion. Heart size normal. No evidence for CHF. SL:13 12/05/2012 [facility] Consultation Notes No Data Provided for This Section Discharge Summaries No Data Provided for This Section History and Physicals No Data Provided for This Section Vital Signs Vital Sign Value Date Comments Source BMI Calculated 30.63 12/18/2017 [facility] Height 167.64 cm 12/18/2017 [facility] Weight 86.08 12/18/2017 [facility] Systolic (mm Hg) 96 12/18/2017 [facility] Diastolic (mm Hg) 64 12/18/2017 [facility] Respitory Rate 18 12/18/2017 [facility] Temperature Oral (F) 98.3 F 12/18/2017 [facility] Heart Rate 79 12/18/2017 [facility] Systolic (mm Hg) 141 11/23/2016 [facility] Diastolic (mm Hg) 79 11/23/2016 [facility] Respitory Rate 17 11/23/2016 [facility] Systolic (mm Hg) 142 11/23/2016 [facility] Diastolic (mm Hg) 76 11/23/2016 [facility] Respitory Rate 17 11/23/2016 [facility] Systolic (mm Hg) 141 11/23/2016 [facility] Diastolic (mm Hg) 75 11/23/2016 [facility] Respitory Rate 16 11/23/2016 [facility] BMI Calculated 32.87 11/22/2016 [facility] Weight 89.602 11/22/2016 [facility] Height 165.1 cm 11/22/2016 [facility] Temperature Oral (F) 97.8 F 12/06/2012 [facility] Systolic (mm Hg) 123 12/06/2012 [facility] Diastolic (mm Hg) 69 12/06/2012 [facility] Rate 80 12/06/2012 [facility] Respitory Rate 19 12/06/2012 [facility] Respitory Rate 21 12/06/2012 [facility] Heart Rate 76 12/06/2012 [facility] Diastolic (mm Hg) 69 12/06/2012 [facility] Systolic (mm Hg) 134 12/06/2012 [facility] Diastolic (mm Hg) 64 12/06/2012 [facility] Systolic (mm Hg) 131 12/06/2012 [facility] Respitory Rate 22 12/06/2012 [facility] Temperature Oral (F) 98.1 F 12/06/2012 [facility] Heart Rate 85 12/06/2012 [facility] Weight 86.364 12/06/2012 [facility] Height 170.18 cm 12/06/2012 [facility] Temperature Oral (F) 99.1 F 12/06/2012 [facility] Encounters Location Location Details Encounter Type Encounter Number Reason For Visit Attending Provider ADM Date DC Date Status Source [facility] Emergency [id number] DENTAL PAIN MICHELLE VIJAYA 08/20/2012 08/21/[address] [facility] Emergency [id number] SHARIFA PAYNE 12/05/2012 12/06/2012 Discharged [facility] [place] [facility] [id number] Dick Tatum 05/14/2013 05/15/[address] [place] [facility] Outpatient [facility] - [place] [facility] [id number] Sid Winchester 11/02/2013 11/03/[address] [place] [facility] Outpatient [facility] - [place] [facility] [id number] Beto Lopez 05/18/2014 05/19/[address] [place] [facility] Outpatient [facility] - [place] Out[facility] [id number] Sid Winchester 07/13/2014 07/14/[address] [place] [facility]patient [facility] - [place] [facility] [id number] Sid Winchester 12/03/2014 12/04/2014 [facility] [place] [facility] [id number] Alexi Chopra 12/16/2014 12/17/2014 [facility] Out[facility] - [place] [facility] [id number] Cherise Russel 06/10/2015 06/11/[address] [place] [facility] Outpatient Imaging - [place] Out[facility] [id number] Cherise Goode 06/12/2016 06/13/[address] [place] [facility] Outpatient [facility] - [place] [facility] [id number] Sid Winchester 07/18/2016 07/19/2016 [facility] Outpatient [id number] Chris Jimenez 11/23/2016 11/23/2016 [facility] - [place] Out[facility] Services [id number] Sid Winchester 02/26/2017 02/27/2017 [facility] Outpatient [facility] - [place] Outpt [facility] Services [id number] Sid Winchester 04/26/2017 04/27/2017 [facility] [place] [facility] Day Surgery [id number] Monty Darling 06/03/2017 06/03/2017 [facility] - [place] Outpt [facility]ag Services [id number] Sid Winchester 06/13/2017 06/13/[address] [place] [facility] Outpatient Imaging - [facility] Outpt Diag Services [id number] Nicolasa Estrada 06/14/2017 06/15/2017 [facility] Outpatient Imaging - [place] Outpt [facility] Services [id number] Ashley Willoughby 09/24/2017 09/25/2017 [facility] [place] Infusion Therapy (INFT) Recurring [id number] Ashley Willoughby 12/18/2017 01/17/2018 [facility] - [place] Out[facility] Services [id number] Sid Winchester 01/06/2018 01/07/2018 [facility] Outpatient [facility] - [place] Out[facility] Services [id number] Nicolasa Estrada 06/17/2018 06/18/2018 [facility] [place] Procedures Procedure Code Date Perfomer Comments Source Carpal tunnel release [id number] [facility], [facility] [place],[facility], [facility] [place] Cataract surgery [id number] [facility] [place],[facility], [facility] [place] section [id number] [facility], [facility] [place],[facility], [facility] [place] Cholecystectomy [id number] [facility], [facility] [place],[facility], [facility] [place] Gastric operation [id number] [facility], [facility] [place],[facility], [facility] [place] Tonsillectomy [id number] [facility], [facility] [place],[facility], [facility] [place] Assessment and Plan No Data Provided for This Section Plan of Care No Data Provided for This Section Social History Social History Date Source Social History TypeResponse Smoking Status Former smoker; Exposure to Tobacco Smoke None; Cigarette Smoking Last 365 Days No; Reg Smoking Cessation Counseling No entered on: 11/22/16 11/22/[facility] [place] Social History TypeResponse Smoking Status Former smoker; Exposure to Tobacco Smoke None; Cigarette Smoking Last 365 Days No; Reg Smoking Cessation Counseling No entered on: 11/22/16 11/22/2016 [facility] Social History TypeResponse Smoking Status Former smoker; Exposure to Tobacco Smoke None; Cigarette Smoking Last 365 Days No; Reg Smoking Cessation Counseling No entered on: 11/22/16 11/22/2016 [facility] [place] Social History TypeResponse Smoking Status Former smoker; Exposure to Tobacco Smoke None; Cigarette Smoking Last 365 Days No; Reg Smoking Cessation Counseling No entered on: 11/22/16 11/22/[address] [facility] Alex Bradys Social History TypeResponse Smoking Status Former smoker; Exposure to Tobacco Smoke None; Cigarette Smoking Last 365 Days No; Reg Smoking Cessation Counseling No entered on: 11/22/16 11/22/2016 [facility] Family History No Data Provided for This Section Advance Directives No Data Provided for This Section Functional Status No Data Provided for This Section
--- OUTSIDE RECORDS SUMMARY | 2018-11-11 05:38 | XMS REPORT | Summary of Care ---
Author Author [facility] Outpatient Imaging [facility] Outpatient Imaging [facility] Address Unknown Phone Unavailable Encounter HQ Rustam(FIN) [id number] Date(s): 02/26/17 - 02/26/17 [facility] [address] [facility], [address] [place] [address] [phone] Discharge Disposition: Home or Self Care Attending [...] Procedures Procedure Date Related Diagnosis Body Site Carpal tunnel release Cataract surgery section Cholecystectomy Gastric operation Tonsillectomy Social History Social History Type Response Smoking Status Former smoker; Exposure to Tobacco Smoke None; Cigarette Smoking Last 365 Days No; Reg Smoking Cessation Counseling No Assessment and Plan No data available for this section
--- OUTSIDE RECORDS SUMMARY | 2018-11-11 05:38 | XMS REPORT | Summary of Care ---
Author Author [facility] Address Unknown Phone Unavailable Encounter HQ Yasemin_juan f(FIN) [id number] Date(s): 06/14/17 - 06/14/17 [facility] Outpatient [facility] [address] [facility] [address] [place] [phone] Encounter Diagnosis Encounter for screening mammogram for malignant neoplasm of breast (Final) - 06/20/17 Discharge Disposition: Home or Self Care Attending Physician: Nicolasa Estrada MD Vital Signs No data available for [...]
--- OUTSIDE RECORDS SUMMARY | 2018-11-11 05:38 | XMS REPORT | Summary of Care ---
Author Author [facility] [place] Organization [facility] [place] Address Unknown Phone Unavailable Encounter HQ Yasemin_juan f(FIN) [id number] Date(s): 09/24/17 - 09/24/17 [facility] [place] [address] [place] [phone] Discharge Disposition: Home or Self Care Attending Physician: Ashley Willoughby Referring Physician: Ashley Willoughby Vital Signs No data available for this [...]
--- OUTSIDE RECORDS SUMMARY | 2018-11-11 05:38 | XMS REPORT | Summary of Care ---
Author Author [facility] Outpatient Imaging [facility] Outpatient [facility] Address Unknown Phone Unavailable Encounter HQ Gloriantr_juan f(FIN) [id number] Date(s): 12/16/14 - 12/16/14 [facility] [address] [facility], [address] [phone] Discharge Disposition: Home Attending Physician: Alexi Chopra MD Vital Signs No data available for [...]
--- OUTSIDE RECORDS SUMMARY | 2018-11-11 05:38 | XMS REPORT | Summary of Care ---
Author Author [facility] Organization [facility] Address Unknown Phone Unavailable Encounter ANGELO Easton(KAM) [id number] Date(s): 11/23/16 - 11/23/16 [facility] [address] [place] [address]- Discharge Disposition: Home or Self Care Attending Physician: Chris Jimenez MD Referring Physician: Chris Jimenez MD Vital Signs 1 2 3 Most recent to oldest [Reference Range]: 165.1 cm (11/22/16 1:42 PM) Height 141/79 mmHg *HI* (11/23/16 12:00 PM) 142/76 mmHg *HI* (11/23/16 11:45 AM) 141/75 mmHg *HI* (11/23/16 11:39 AM) Blood Pressure [90-140/60-90 mmHg] 17 BRMIN (11/23/16 12:00 PM) 17 BRMIN (11/23/16 11:45 AM) 16 BRMIN (11/23/16 11:39 AM) Respiratory Rate [14-20 BRMIN] 89.602 kg (11/22/16 1:42 PM) Weight 32.87 m2 (11/22/16 1:42 PM) Body Mass Index Problem List Condition Effective Dates Status Health Status Informant Cataracts, Resolved bilateral(Confirmed) [facility]MC Resolved arthritis(Confirmed) Depression(Confirmed Resolved ) Neuropathy involving Resolved both lower extremities(Confirme d) Pain in the Resolved shoulder(Confirmed) Allergies, Adverse Reactions, Alerts Substance Reaction Severity Status iodine Active Levaquin Active Medications albuterol-ipratropium 2.5-0.5 mg inhalation solution 3 mL, Route: NEB, Dosing Weight 89.602, kg, ONCE, STAT, Start date: 11/23/16 10: 49:00 CDT, Stop date: 11/23/16 10:49:00 CDT Start Date: 11/23/16 Stop Date: 11/23/16 Status: Discontinued calcium carbonate 1250 mg (500 mg elemental calcium) oral tablet 1,250 mg=1 tab, PO, Daily, 0 Refill(s) Start Date: 11/22/16 Status: Ordered Claritin 10 mg oral tablet 10 mg=1 tab, PO, Daily, # 7 tab, 0 Refill(s) Start Date: 11/22/16 Stop Date: 11/29/16 Status: Ordered diclofenac sodium 1% topical cream TOP, QID, 0 Refill(s) Start Date: 11/22/16 Stop Date: 11/22/16 Status: Deleted Prevacid 30 mg oral delayed release capsule 30 mg=1 cap, PO, Daily, # 30 cap, 0 Refill(s) Start Date: 11/22/16 Status: Ordered ProAir HFA 1 - 2 puffs, PO, Q4H, PRN Wheezing / cough / shortness of breath, # 1 ea, 0 Refi ll(s) Start Date: 11/22/16 Stop Date: 12/17/16 Status: Ordered Procycle Multi Vitamin with Minerals oral tablet 1 tab, PO, Daily, 0 Refill(s) Start Date: 11/22/16 Status: Ordered Sodium Chloride 0.9% IV 500 mL 500 mL, Rate: 25 ml/hr, Infuse over: 20 hr, Route: IV, Dosing Weight 89.602 kg, Total Volume: 500, Start date: 11/23/16 10:49:00 CDT, Duration: 30 day, Stop margy e: 12/23/16 10:48:00 CDT Start Date: 11/23/16 Stop Date: 11/23/16 Status: Discontinued Vitamin D3 2000 intl units oral tablet 2,000 IntlUnit=1 tab, PO, Daily, 0 Refill(s) Start Date: 11/22/16 Status: Ordered Results No data available for this section [...]
--- OUTSIDE RECORDS SUMMARY | 2018-11-11 05:38 | XMS REPORT | Summary of Care ---
Author Author [facility] Outpatient Imaging [facility] Outpatient [facility] Address Unknown Phone Unavailable Encounter HQ Encntr_alias(FIN) [id number] Date(s): 07/18/16 - 07/18/16 [facility] Outpatient Imaging [facility] [address] [facility], [address] [place], [place] [address] [phone] Discharge Disposition: Home or Self Care Attending [...]
--- OUTSIDE RECORDS SUMMARY | 2018-11-11 05:38 | XMS REPORT ---
Author [facility] Address Unknown Phone Unavailable Care Team Providers Care Swabber Name Role Phone MIRNA RUTLEDGE Unavailable Unavailable Payers Payer Name Policy Type Policy Number Effective Date Expiration Date Problems This patient has no known problems. Allergies, Adverse Reactions, Alerts Allergy Name Allergy Type Status Severity Reaction(s) Onset Date Inactive Date Treating Clinician Comments Iodinated Contrast Media - IV Dye DA Active U 2018-02-27 00:00:00 iodine DA Active SV 2018-02-27 00:00:00 levofloxacin DA Active U 2018-02-27 00:00:00 iodine DA Active SV 2009-05-01 00:00:00 Medications This patient has no known medications. Results Test Description Test Time Test Comments Text Results Atomic Results Result Comments CHEST 2 VIEWS 2018-11-05 11:18:00 [place] [address] Patient Name: MALIA MARTIN MR #: [id number] : 1955 Age/Sex: 63/F Req #: [id number] Adm Physician: Ordered by: MIRNA RUTLEDGE DP Report #: [id number] Location: OR Room/Bed: Procedure: [id number] DX/CHEST 2 VIEWS Exam Date: 11/05/18 Exam Time: 1050 REPORT STATUS: Signed Chest, 2 views, 11/05/2018. History: Preop, foot surgery. Comparison: None available. Findings: The cardiomediastinal silhouette and pulmonary vasculature are within normal limits. The lungs are clear without evidence of consolidation or pleural effusion. Mild degenerative changes are present within the thoracic spine. There are no acute osseous or soft tissue abnormalities. Impression: No acute cardiopulmonary abno rmality. Signed by: Willie Canela on 11/05/2018 11:18 AM Dictated By: WILLIE CANELA MD [id number] Transcribed By: BULL on 11/05/18 1118 COPY TO: MIRNA RUTLEDGE DPM
[2018-11-11 09:55] VITALS: BP 135/76
--- NOTE | 2018-11-11 13:45 | Operative Report ---
DATE OF PROCEDURE: 11/11/2018 SURGEON: Marilu Hernandez DPM TERRAPIN FISHER: None. PREOPERATIVE DIAGNOSES: 1. 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 2. Neuritis, 2nd interspace, left. POSTOPERATIVE DIAGNOSES: 1. 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 2. Neuritis, 2nd interspace, left. PROCEDURES: 1. Excision of neuroma, 3rd interspace, left. 2. Neurolysis, 2nd, left. 3. The use of a human allograft to prevent adhesions and to help stop neuroma. COMPLICATIONS: None. CONDITION: Stable. PROCEDURE IN DETAIL: Under mild sedation, the patient was brought to the operating room, and placed on the operative table in supine position. Following IV sedation, anesthesia was obtained with a general anesthetic. At this point, the left foot scrubbed, prepped, and draped in the usual aseptic manner, it was then lowered to the table. Attention was then directed to the dorsal aspect of the left foot, where a linear incision was made overlying the 3rd intermetatarsal space. The incision was deepened down to the level of the intermetatarsal ligament. The intermetatarsal ligament was isolated and transected. The neuroma was visualized. The neuroma was then isolated, it was then transected distal medial, distal lateral in the proximal aspect. It was then passed from the operating table and sent for pathology. Attention was then directed to the 2nd intermetatarsal space, where a linear incision was made overlying the area of the neuritis. The incision was deepened down to the level of intermetatarsal ligament. The intermetatarsal ligament was then released and the nerve was released from this adhesion. The area was then flushed with copious amount of normal sterile saline solution. At this point, human allograft was then inserted into both incision in order to decrease neuritis and to help prevent stump neuroma and adhesions. The area was then closed, closing the deepest layer with 4-0 Vicryl and 4-0 nylon. Please clean dressing was applied consisting of Adaptic, 4x4s, Kerlix, and Tashi bandage. The tourniquet was deflated. There was noted to be hyperemic response to all the digits. The patient tolerated the procedure and anesthesia well without complications, was transported to recovery room with vital signs stable, vascular status intact. The patient will be discharged home when she meets criteria. She was given instructions to be nonweightbearing to ice and elevate the foot while at rest. Follow up with me in the office and to call the office with any questions, concerns, or new problems arise. SHONDA Mckeon/HARRY /[id number]
== END | disposition home or self-care (01) ==
LOC: OR 05:35
PROVIDERS: ATTEND Podiatrist Foot & Ankle Surgery
DX: G57.62 Lesion of plantar nerve, left lower limb (principal); G58.8 Other specified mononeuropathies; I10 Essential (primary) hypertension; I25.2 Old myocardial infarction; I51.81 Takotsubo syndrome; K21.9 Gastro-esophageal reflux disease without esophagitis; Z88.1 Allergy status to other antibiotic agents; Z91.041 Radiographic dye allergy status; Z01.810 Encounter for preprocedural cardiovascular examination; Z01.812 Encounter for preprocedural laboratory examination; Z01.818 Encounter for other preprocedural examination; Z79.82 Long term (current) use of aspirin
CPT/HCPCS: 28080; 36415; 64704; 71046; 80048; 85025; 88304; 93005; J0690; J1100; J1170; J2001; J2405; J2704; J2710; Q4150